=== PATIENT | male | born 1945 | race Caucasian/White ===

== ENCOUNTER 2017-03-22 18:00 | Inpatient (IN) ==
[2017-03-22] MEDS ORDERED: Ipratropium/Albuterol Neb 3 ML IH ONE (18:13)
[2017-03-22] MEDS ORDERED: methylPREDNISolone 125 MG/2 ML VIAL IVP ONE (18:13)
--- NOTE | 2017-03-22 18:25 | Emergency Department Note ---
Disposition Clinical Impression: Hypoxia Dyspnea Qualifiers: Dyspnea type: unspecified Qualified Code(s): R06.00 - Dyspnea, unspecified Disposition: Still a Patient Condition: Undetermined Forms: ED Satisfaction Letter [facility] - General Chief Complaint: ED Shortness of Breath/Dyspnea Stated Complaint: shortness of breath Time Seen by Provider: 03/22/17 18:03 Source: patient, EMS Mode of arrival: EMS Limitations: no limitations Nursing Notes Reviewed: Yes Vital Signs Reviewed: Yes - History of Present Illness 71-year-old male history of COPD 3L home oxygen supplementation as needed he reports, hypertension, congestive heart failure, diabetes, chronic atrial fibrillation on warfarin presents to the ED for shortness of breath. He presents via EMS from [facility]. States he was recently discharged from [facility] for pneumonia and hypotension. He is unsure if he is currently taking antibiotics at the moment. He is currently just in rehab. He became angry when asked if on oxygen supplementation, states before hospitalization never, but since 3L as needed. The staff at the snf states he appeared to be short of breath with increase worker breathing last night as well as today. Patient denies any of the symptoms. He denies any chest pain, fever, nausea, vomiting or abdominal pain. While I was examining him he coughed up a large amount of purulent sputum. He says this is not normal. He has breathing treatments at home twice a day. He has been using his incentive spirometer. He denies any recent travel, active cancer, history of blood clots. On initial presentation he has increase worker breathing and is not moving much air on the right lung field. He is hypoxic 78% but maintaining well on 3 L oxygen supplementation. Will get EKG, chest x-ray, basic labs, lactate, blood cultures as well as continuous breathing treatments and steroids. Will reevaluate the patient. - Related Data Allergies Allergy/AdvReac Type Severity Reaction Status Date / Time lisinopril AdvReac See Verified 03/22/17 18:18 Comments All systems ED: reviewed and negative except as stated. Constitutional: Denies: fever, chills Cardiovascular: Denies: chest pain Respiratory: Reports: cough, dyspnea, wheezes Gastrointestinal: Denies: abdominal pain, nausea, vomiting Genitourinary: Denies: urgency, dysuria Musculoskeletal: Denies: back pain, neck pain Integumentary: Denies: rash, abrasion Neurological: Denies: headache Past Medical History - Past Medical History Attestation: Yes The following information was validated with the patient. Source: patient Medical history: Reports: CHF, COPD, diabetes, hyperlipidemia, hypertension Physical Exam - General Limitations: no limitations General appearance: alert, obese - Head Head exam: atraumatic, normocephalic, normal inspection - Eye Eye exam: Present: normal appearance, PERRL, EOMI - ENT ENT exam: normal exam, normal oropharynx, mucous membranes moist, other ( teleangectasia) - Neck Neck exam: Present: normal inspection, full ROM, trachea midline - Chest Chest inspection: Present: normal inspection, symmetric chest wall rise. Absent : tenderness, rash - Respiratory Respiratory exam: Present: respiratory distress, wheezes, accessory muscle use - Expanded Respiratory Exam Location: wheezes: Left, Right, decreased breath sounds: Right - Cardiovascular Cardiovascular exam: Present: normal rhythm, irregular rhythm, normal heart sounds - Abdominal Exam Abdominal exam: Present: soft (Obese), Non-Tender, normal bowel sounds. Absent : tenderness, distention, guarding, rebound, rigidity - Extremities Exam Extremities exam: Present: normal inspection, full ROM, pedal edema (+2), other (Delay capillary refill, poor perfusion throughout his extremities, cold to the touch). Absent: tenderness, calf tenderness - Neurological Exam Neurological exam: Present: alert, oriented X3 - Psychiatric Psychiatric exam: Present: normal affect, normal mood - Skin Skin exam: Present: warm, dry, intact, cyanosis, pallor Course - Reevaluation(s) Reevaluation #1: Patient will be signout to nighttime physician Dr. Barakat and Dr. Newton for further management and care. Time: 18:53 Vital Signs Temperature 98.3 F 03/22/17 18:03 Pulse Rate 76 03/22/17 18:03 Respiratory Rate 26 03/22/17 18:03 Blood Pressure 105/86 03/22/17 18:03 O2 Sat by Pulse Oximetry 76 03/22/17 18:03 Temperature 98.3 F 03/22/17 18:03 Pulse Rate 76 03/22/17 18:50 Respiratory Rate 28 03/22/17 18:50 Blood Pressure 131/82 03/22/17 18:50 O2 Sat by Pulse Oximetry 88 03/22/17 18:50 Oxygen Delivery Oxygen Delivery Nasal Cannula Shortness of Breath/Dyspnea - Medical Records Medical records reviewed: Yes I reviewed the patient's medical records. - EKG Data EKG attestation: Yes I reviewed and interpreted this EKG. EKG results narrative: EKG performed 1805 atrial fibrillation 80 bpm, QRS 139, right bundle branch block, Q waves in the inferior leads, no ST elevations or depressions. There is no old EKG for comparison. This is an abnormal EKG without STEMI pattern Critical Care Time Critical Care Time: Yes Total Critical Care Time: 35 Attestation: Critical care time 35 minutes to manage patient's severe hypoxia. S.BChastity - S.Jam Situation: Demographics, MOA Background: Presenting Complaint, Relevant PMH, Meds, & Allergies Assessment: Vital Signs, Course and respsone to treatment, Exam Concerns, Patient/Family Expectation, Pertinant Lab Results, Outstanding Labs Recommendation: Barrier(s) to disposition, Recommendation based on pending studies, treatments, or consults S.BChastity Report Given to: Dr. Barakat and Dr. Newton SLorinBLorinAKacey Repor Time: 18:53 Attestation Statement - Attestation Attestation: Patient was seen with resident physician. I reviewed the history, physical, assessment and plan, and agree with the findings. I also personally evaluated this patient and had [id number] time with this patient. 71-year-old male presents to the emergency Department from [facility]. Staff became concerned as the patient appeared increasingly short of breath. Patient still says he feels okay and at his baseline. He is on home O2 at 3 L as needed or some confusion as to whether or not this is continuous or just on a when necessary basis. Patient denies fevers or chills. He does have swelling of the lower extremities which she says is not new. He denies chest pain or fevers. I examination vital signs patient's considerably more hypoxic than he should be. Heart and blood pressure are normal. ENT is unremarkable. Heart irregularly irregular rhythm with no appreciable murmurs, heart sounds are difficult to auscultate secondary to patient habitus. Lung sounds very poor air exchange wheezing on the right side almost difficult to hear air movement on the left side. Extremities patient has considerable edema in the lower extremities from the umbilicus down. Abdomen is large obese and nontender. Neurologically is patient's intact. ED course patient will be worked up for acute COPD exacerbation pneumonia and other causes of his hypoxia. He will be admitted to the hospital once his workup is completely have more data to definitively diagnose him. Patient was signed out to the cnc machinist 2nd shift team at 7 PM who will complete the workup and disposition for this patient. Although it is possible that he could return to the snf at his time of presentation I consider this outcome unlikely.
[2017-03-22 18:47] LABS: Basophils % 0.3 %
[2017-03-22 18:49] LABS: Eosinophils # 0.1 K/mcL (0.0-0.6); Eosinophils % 0.7 %; Hematocrit 48.1 % (37.5-50.1); Hemoglobin 13.9 g/dL (12.9-16.9); Immature Granulocytes % 1.2 % (0-4); Lymphocytes # 0.5 K/mcL (0.6-4.6); Lymphocytes % 3.6 %; Mean Corpuscular HGB Conc 28.9 g/dL (31.6-35.5); Mean Corpuscular Volume 100.2 fL (83.0-100.0); Monocytes # 0.9 K/mcL (0.0-1.3); Monocytes % 5.9 %; Platelet Count 304 K/mcL (140-400); Red Cell Distribution Width 16.7 % (11.5-14.5); Segmented Neutrophils % 88.3 %
[2017-03-22 18:53] LABS: Prothrombin Time 21.6 Seconds (9.4-12.1)
[2017-03-22 18:55] LABS: Activated Partial Thrombo Time 40.2 Seconds (26.0-36.0)
[2017-03-22 18:59] LABS: ABG HCO3 49.3 mEQ/L (21-27); ABG Oxygen Saturation 88 % (95-98); ABG PH 7.24 pH Units (7.32-7.45); ABG PO2 63 mmHg (85-104); ABG TCO2 52.8 mEq/L (20-26)
[2017-03-22 19:02] LABS: ABG PCO2 115 mmHg (35-45)
[2017-03-22 19:04] LABS: BUN/Creatinine Ratio 24 (6-26); Blood Urea Nitrogen 22 mg/dL (8-26); Calcium 9.1 mg/dL (8.6-10.8); Chloride 86 mEq/L (98-109); Glucose 167 mg/dL (70-99); Osmolality,Calculated 297 (280-300); Potassium 4.8 mEq/L (3.5-4.5); Sodium 140 mEq/L (136-145); eGFR For African Americans > 60 (> 60); eGFR For Non-African Americans > 60 (> 60)
[2017-03-22 19:08] LABS: Carbon Dioxide 48 mEq/L (19-29)
[2017-03-22 19:12] LABS: Anisocytosis 1+ (Not Present); Hypochromasia Present (Not Present)
[2017-03-22] MEDS ORDERED: Aspirin 325 MG TABLET PO ONE (19:12)
[2017-03-22] MEDS ORDERED: Furosemide 40 MG/4 ML VIAL IVP ONE ×2 (19:12→22:22)
[2017-03-22 19:13] LABS: Large Platelets Present (Not Present); Platelet Estimate Normal (Normal)
[2017-03-22 19:14] LABS: Macrocytosis Present (Not Present)
--- NOTE | 2017-03-22 19:26 | Emergency Department Note ---
Disposition Clinical Impression: Hypoxia, CHF (congestive heart failure) Dyspnea Qualifiers: Dyspnea type: unspecified Qualified Code(s): R06.00 - Dyspnea, unspecified Disposition: Admitted As Inpatient Condition: Fair Time of Disposition: 20:45 SOB HPI - General Chief Complaint: ED Shortness of Breath/Dyspnea Stated Complaint: shortness of breath Time Seen by Provider: 03/22/17 18:03 Source: patient, EMS Mode of arrival: EMS Limitations: no limitations Nursing Notes Reviewed: Yes Vital Signs Reviewed: Yes - Related Data Allergies Allergy/AdvReac Type Severity Reaction Status Date / Time lisinopril AdvReac See Verified 03/22/17 18:18 Comments Constitutional: Denies: fever, chills Cardiovascular: Denies: chest pain Respiratory: Reports: cough, dyspnea, wheezes Gastrointestinal: Denies: abdominal pain, nausea, vomiting Genitourinary: Denies: urgency, dysuria Musculoskeletal: Denies: back pain, neck pain Integumentary: Denies: rash, abrasion Neurological: Denies: headache Past Medical History - Past Medical History Medical history: Reports: CHF, COPD, diabetes, hyperlipidemia, hypertension Psychiatric history: Reports: no psych history - Social History Smoking Status: Former smoker Smokeless Tobacco Status: No Alcohol use: Reports: none Drug use: Reports: none Physical Exam - General Limitations: no limitations General appearance: alert, obese Course Course Narrative: 71-year-old male presenting with shortness of breath. History of COPD and CHF. He received in signout from the daytime team. Upon my evaluation, the patient is alert and oriented 3 but does have a distant stare. He is in moderate respiratory distress with abdominal muscle use. Is not moving air at all. This was after receiving [address] the patient on BiPAP and admitted for CHF exacerbation. Chest x-ray shows diffuse pulmonary edema. Blood pressure had decreased to 110 systolic after BiPAP. We will hold off on any nitroglycerin at this time as the patient seems to be tolerating the BiPAP well and his work of breathing is decreased. His oxygen saturations have been stable around 90%. Prior to being placed on BiPAP. He was in the low to mid 80s on a nonrebreather. - Reevaluation(s) Reevaluation #1: ABG showed a CO2 of 1:15. Patient on BiPAP now. Tolerating it well. Admitted to hospitalist service. Lasix given. Vital Signs Temperature 98.3 F 03/22/17 18:03 Pulse Rate 76 03/22/17 18:03 Respiratory Rate 26 03/22/17 18:03 Blood Pressure 105/86 03/22/17 18:03 O2 Sat by Pulse Oximetry 76 03/22/17 18:03 Temperature 98.3 F 03/22/17 18:03 Pulse Rate 76 03/22/17 20:45 Respiratory Rate 20 03/22/17 20:45 Blood Pressure 126/73 03/22/17 20:45 O2 Sat by Pulse Oximetry 96 03/22/17 20:45 Oxygen Delivery Oxygen Delivery Bipap Shortness of Breath/Dyspnea - Differential Diagnosis Likely: acute exacerbation of chronic obstructive airways disease, congestive heart failure - Medical Records Medical records reviewed: Yes I reviewed the patient's medical records. - Lab Data Lab results reviewed: Yes I reviewed the patient's lab results. Result diagrams: 03/22/17 18:35 03/22/17 18:35 Lab Results 03/22/17 03/22/17 03/22/17 Range/Units 18:35 18:35 18:35 WBC 14.7 H (4.3-11.1) K/mcL RBC 4.80 (4.19-5.50) M/mcL Hgb 13.9 D (12.9-16.9) g/dL Hct 48.1 (37.5-50.1) % MCV 100.2 H (83.0-100.0) fL MCH 29.0 (28.0-33.3) pg MCHC 28.9 L (31.6-35.5) g/dL RDW 16.7 H (11.5-14.5) % Plt Count 304 (140-400) K/mcL MPV 10.0 (9.4-12.4) fL Immature Gran % 1.2 (0-4) % Seg Neutrophils % 88.3 % Lymphocytes % 3.6 % Monocytes % 5.9 % Eosinophils % 0.7 % Basophils % 0.3 % Neutrophils # 13.0 H (1.6-8.9) K/mcL Lymphocytes # 0.5 L (0.6-4.6) K/mcL Monocytes # 0.9 (0.0-1.3) K/mcL Eosinophils # 0.1 (0.0-0.6) K/mcL Basophils # 0.0 (0.0-0.2) K/mcL Platelet Estimate Normal (Normal) Large Platelets Present A (Not Present) Hypochromasia Present A (Not Present) Anisocytosis 1+ A (Not Present) Macrocytosis Present A (Not Present) PT (9.4-12.1) Seconds INR APTT (26.0-36.0) Seconds ABG pH (7.32-7.45) pH Units ABG pCO2 (35-45) mmHg ABG pO2 (85-104) mmHg ABG HCO3 (21-27) mEQ/L ABG Total CO2 (20-26) mEq/L ABG O2 Saturation (95-98) % ABG Base Excess (-2.0 to 3.0) mEq/L Sodium 140 (136-145) mEq/L Potassium 4.8 H (3.5-4.5) mEq/L Chloride 86 L (98-109) mEq/L Carbon Dioxide 48 H* (19-29) mEq/L BUN 22 (8-26) mg/dL Creatinine 0.93 (0.72-1.25) mg/dL Est GFR ( Amer) > 60 (> 60) Est GFR (Non-Af Amer) > 60 (> 60) BUN/Creatinine Ratio 24 (6-26) Glucose 167 H (70-99) mg/dL Calculated Osmolality 297 (280-300) Lactic Acid 1.7 (0.5-2.2) mmol/L Calcium 9.1 (8.6-10.8) mg/dL Troponin I (0-0.03) ng/mL B-Natriuretic Peptide (0-100) pg/mL 03/22/17 03/22/17 03/22/17 Range/Units 18:35 18:35 18:35 WBC (4.3-11.1) K/mcL RBC (4.19-5.50) M/mcL Hgb (12.9-16.9) g/dL Hct (37.5-50.1) % MCV (83.0-100.0) fL MCH (28.0-33.3) pg MCHC (31.6-35.5) g/dL RDW (11.5-14.5) % Plt Count (140-400) K/mcL MPV (9.4-12.4) fL Immature Gran % (0-4) % Seg Neutrophils % % Lymphocytes % % Monocytes % % Eosinophils % % Basophils % % Neutrophils # (1.6-8.9) K/mcL Lymphocytes # (0.6-4.6) K/mcL Monocytes # (0.0-1.3) K/mcL Eosinophils # (0.0-0.6) K/mcL Basophils # (0.0-0.2) K/mcL Platelet Estimate (Normal) Large Platelets (Not Present) Hypochromasia (Not Present) Anisocytosis (Not Present) Macrocytosis (Not Present) PT 21.6 H (9.4-12.1) Seconds INR 2.0 APTT 40.2 H (26.0-36.0) Seconds ABG pH (7.32-7.45) pH Units ABG pCO2 (35-45) mmHg ABG pO2 (85-104) mmHg ABG HCO3 (21-27) mEQ/L ABG Total CO2 (20-26) mEq/L ABG O2 Saturation (95-98) % ABG Base Excess (-2.0 to 3.0) mEq/L Sodium (136-145) mEq/L Potassium (3.5-4.5) mEq/L Chloride (98-109) mEq/L Carbon Dioxide (19-29) mEq/L BUN (8-26) mg/dL Creatinine (0.72-1.25) mg/dL Est GFR ( Amer) (> 60) Est GFR (Non-Af Amer) (> 60) BUN/Creatinine Ratio (6-26) Glucose (70-99) mg/dL Calculated Osmolality (280-300) Lactic Acid (0.5-2.2) mmol/L Calcium (8.6-10.8) mg/dL Troponin I 0.01 (0-0.03) ng/mL B-Natriuretic Peptide 611 H (0-100) pg/mL 03/22/17 Range/Units 18:49 WBC (4.3-11.1) K/mcL RBC (4.19-5.50) M/mcL Hgb (12.9-16.9) g/dL Hct (37.5-50.1) % MCV (83.0-100.0) fL MCH (28.0-33.3) pg MCHC (31.6-35.5) g/dL RDW (11.5-14.5) % Plt Count (140-400) K/mcL MPV (9.4-12.4) fL Immature Gran % (0-4) % Seg Neutrophils % % Lymphocytes % % Monocytes % % Eosinophils % % Basophils % % Neutrophils # (1.6-8.9) K/mcL Lymphocytes # (0.6-4.6) K/mcL Monocytes # (0.0-1.3) K/mcL Eosinophils # (0.0-0.6) K/mcL Basophils # (0.0-0.2) K/mcL Platelet Estimate (Normal) Large Platelets (Not Present) Hypochromasia (Not Present) Anisocytosis (Not Present) Macrocytosis (Not Present) PT (9.4-12.1) Seconds INR APTT (26.0-36.0) Seconds ABG pH 7.24 L (7.32-7.45) pH Units ABG pCO2 115 H* (35-45) mmHg ABG pO2 63 L (85-104) mmHg ABG HCO3 49.3 H (21-27) mEQ/L ABG Total CO2 52.8 H (20-26) mEq/L ABG O2 Saturation 88 L (95-98) % ABG Base Excess 15.0 H (-2.0 to 3.0) mEq/L Sodium (136-145) mEq/L Potassium (3.5-4.5) mEq/L Chloride (98-109) mEq/L Carbon Dioxide (19-29) mEq/L BUN (8-26) mg/dL Creatinine (0.72-1.25) mg/dL Est GFR ( Amer) (> 60) Est GFR (Non-Af Amer) (> 60) BUN/Creatinine Ratio (6-26) Glucose (70-99) mg/dL Calculated Osmolality (280-300) Lactic Acid (0.5-2.2) mmol/L Calcium (8.6-10.8) mg/dL Troponin I (0-0.03) ng/mL B-Natriuretic Peptide (0-100) pg/mL - Radiology Data Radiology results reviewed: Yes I reviewed the patient's radiology results. Chest X-Ray 07/15/17 18:13 IMPRESSION: CHF and pulmonary edema with moderate left and small right pleural effusions. D/ / Efren Mcclendon MD / Efren Mcclendon MD Interpreting Provider: Efren Mcclendon MD Critical Care Time Critical Care Time: Yes Total Critical Care Time: 30 Attestation: The high probability of a clinically significant, sudden or life threatening deterioration of the [resp] system(s) required my full and direct attention, intervention and personal management. The aggregate critical care time was [30] minutes. This time is in addition to time spent performing reported procedures but includes the following: [X] Data Review and interpretation [X] Patient assessment and monitoring of vital signs [X] Documentation [X] Medication orders and management S.B.AKacey - S.B.AKacey Situation: Demographics, MOA Background: Presenting Complaint, Relevant PMH, Meds, & Allergies Assessment: Vital Signs, Course and respsone to treatment, Exam Concerns, Patient/Family Expectation, Pertinant Lab Results, Outstanding Labs Recommendation: Barrier(s) to disposition, Recommendation based on pending studies, treatments, or consults S.B.AKacey Report Given to: Dr. Shannan Sanchez Repor Time: 20:44 Attestation Statement - Attestation Attestation: I personally interviewed and examined this patient and my medical decision- making was reviewed with the ED Resident Physician, Dr. Barakat I agree with the documented findings, disposition and treatment plan as described except to the extent set forth below. She is a 71-year-old white male who presents by EMS today with respiratory distress. Patient was signed out to us by Dr. Escalante's team, they performed the initial evaluation of the patient had reviewed his EKG, placed initial orders at the time that the patient was signed out. Patient has a history of CHF, COPD, diabetes, hypertension, hyperlipidemia, who resides at an extended care facility and they felt that his breathing was much worse and he was appeared more swollen in his lower extremities today. Patient is awake alert and oriented 3 and denies any chest pain pressure or heaviness, no diaphoresis , no nausea vomiting, no abdominal pain or back pain. Patient actually feels he is at his baseline despite room air sats around 80%. We took over the patient's care patient was sitting with a nonrebreather with room air sats 89-90 %. Patient's EKG shows atrial fibrillation which is rate controlled. No acute ST or T-wave changes are appreciated. We went ahead and initiated BiPAP as the patient appears fluid overloaded and most likely an acute exacerbation of his CHF. Patient received aspirin Solu- Medrol and a breathing treatment prior to arrival, we are adding Lasix and will also add nitroglycerin assuming his pressure holds following BiPAP administration. Chest x-ray shows an acute exacerbation of CHF with bilateral pleural effusions left greater than right. Patient's BNP is mildly elevated at 611, his troponin is negative. Patient also is acidotic with an elevated CO2, COPD component involved as well. We will reevaluate the patient following BiPAP administration and admit the patient for respiratory distress.
--- NOTE | 2017-03-22 21:50 | Internal Med History&Physical ---
Date of Encounter: 03/22/17 Time of Encounter: 21:46 Assessment and Plan (1) Acute on chronic congestive heart failure Current visit: Yes Status: Acute No echocardiogram in our system, so unsure if systolic vs. diastolic; will confirm with Echocardiogram He is on high doses of diuretics at home, so will aggressively diurese with IV Lasix 40 mg BID and continue Metolazone Fluid restrict at 1.5 L and monitor I/O's Qualifiers: Congestive heart failure type: unspecified congestive heart failure type Qualified Code(s): I50.9 - Heart failure, unspecified (2) Acute on chronic respiratory failure with hypoxemia Current visit: Yes Status: Acute Likely secondary to acute on chronic CHF in setting of COPD Will continue breathing treatments, supplemental oxygen, and BiPAP as needed ABG shows CO2 of 115, but he likely is chronic CO2 retainer (3) COPD (chronic obstructive pulmonary disease) Current visit: Yes Status: Chronic Not currently in exacerbation at this time given that he denies any productive cough No indications for antibiotics now, but will start low dose steroids with 5 days of 40 mg prednisone Continue with breathing treatments and non-invasive oxygen support as above Qualifiers: Qualified Code(s): J44.9 - Chronic obstructive pulmonary disease, unspecified (4) Chronic a-fib Current visit: Yes Status: Chronic Rate controlled with Metoprolol which will resume Continue ASA, Statin, Coumadin (5) Non-insulin dependent type 2 diabetes mellitus Current visit: Yes Status: Chronic Holding home diabetic meds while on low dose SSI ACHS accuchecks Will obtain A1c in AM (6) DVT prophylaxis Current visit: Yes Status: Acute Continue home Coumadin Internal Medicine - H&P: HPI Chief complaint: SOB Admitted From: Long-term Nursing Facility Plans for Post Hospital Care: Transfer [facility] History of present illness: Mr. Monroy is a 71 year old male who presents from [facility] with shortness of breath. According to Dr. whatley, the nursing staff thought he had trouble breathing fine last night and this persisted today. Patient also complains of a cough but states this is nonproductive. He denies any fevers, chest pain, nausea, vomiting, diarrhea. Patient denies many of these symptoms and states that those shortness of breath has been present since being discharged. He was discharged on oxygen, 3 L as needed and has breathing treatments at home. Patient does have tangential speech and frequent talks about his but is otherwise appropriate. He lives at home with his and at baseline is able to get around with minimal difficulty. Patient states that he would like to try CPAP as opposed BiPAP as it dries him out. Past Med Surg Social Fam HX - Past Medical History Medical history: CHF, COPD, diabetes, hyperlipidemia, hypertension Psychiatric history: no psych history - Social History Smoking Status: Former smoker Smokeless Tobacco Status: No Alcohol use: none Drug use: none Internal Medicine - H&P: Meds Acetaminophen [Tylenol] 325 mg PO Q6HR PRN 03/22/17 [History] Albuterol Sulfate 2.5 mg IH Q4HR PRN 03/22/17 [History] Albuterol Sulfate [Proventil Hfa] 90 mcg IH Q4HR 03/22/17 [History] Allopurinol [Zyloprim] 300 mg PO DAILY 03/22/17 [History] Aspirin [Lo-Dose Aspirin EC] 81 mg PO DAILY 03/22/17 [History] Docusate Sodium [Move It Along] 100 mg PO BID 03/22/17 [History] Furosemide [Lasix] 80 mg PO BID 03/22/17 [History] Lactulose [Enulose] 10 gm PO BID 03/22/17 [History] Metoprolol Tartrate [Lopressor] 25 mg PO BID 03/22/17 [History] Psyllium Seed [Hydrocil Instant] 2.6 gm PO BID 03/22/17 [History] Simvastatin [Zocor] 20 mg PO HS 03/22/17 [History] Warfarin [Coumadin] 10 mg PO 1700 03/22/17 [History] metOLazone [Zaroxolyn] 2.5 mg PO DAILY 03/22/17 [History] Allergies lisinopril Adverse Reaction (Verified 03/22/17 18:18) See Comments "it makes me slobber" All Systems PM: A 10-system review of systems was performed and is negative for pertinent findings except as documented above in the HPI. - Constitutional Constitutional: no chills, no fever(s), no night sweats - EENT Eyes: no change in vision, no discharge, no pain, no photophobia Ears: no ear discharge, no ear pain, no tinnitus Nose, mouth and throat: no dysphagia, no nasal discharge, no neck pain, no sore throat - Cardiovascular Cardiovascular ROS IM: dyspnea, irregular heart rhythm, no chest pain, no diaphoresis, no lightheadedness, no palpitations, no syncope - Respiratory Respiratory: dyspnea, no cough, no wheezing, no excessive phlegm production - Gastrointestinal Gastrointestinal: no abdominal pain, no diarrhea, no hematemesis, no hematochezia, no melena, no nausea, no vomiting - Musculoskeletal Musculoskeletal ROS IM: no numbness, no tingling - Integumentary Integumentary IM: no rash, no unusual bruising - Neurological Neurological ROS: no confusion, no convulsions, no focal weakness, no numbness, no tingling, no tremor(s) - Hematologic/Lymphatic Hematologic/Lymphatic: no easy bruising - Constitutional Vitals: Temp Pulse Resp BP Pulse Ox 0 F L 76 25 0/0 90 03/22/17 20:56 03/22/17 20:45 03/22/17 21:08 03/22/17 20:56 03/22/17 21:08 General appearance: Present: A&O X 3, morbidly obese, pleasant, no acute distress, answers questions appropriately (tangential speaking, but eventually answers questions) - Head Head exam: Present: atraumatic, normocephalic - Eye Eye exam: Present: PERRL, conjuntiva pink, sclera anicteric - Neck Neck exam general surgery: Present: supple, trachea midline. Absent: lymphadenopathy - Respiratory Respiratory exam: Present: decreased breath sounds. Absent: accessory muscle use, rales, rhonchi, wheezes - Cardiovascular Cardiovascular exam: Present: irregular rhythm, +S1, +S2. Absent: diastolic murmur, gallop, rubs, systolic murmur - GI/Abdominal GI/Abdominal exam: Present: normal bowel sounds, soft, no peritoneal signs. Absent: distended, tenderness - Extremities Exam Extremities exam: Present: pedal edema (2+ pitting BL LE), warm, radial pulses palpable and symetrical. Absent: calf tenderness, cyanotic - Neurological Exam Neurological exam: Present: alert, oriented X3, no focal deficits. Absent: facial droop, speech deficit - Skin Skin exam: Present: dry, intact Internal Med - H&P Results - Labs CBC & Chem 7: 03/22/17 18:35 03/22/17 18:35
[2017-03-22] MEDS ORDERED: Dextrose Gel 15 GM PO PRN ×2 (22:22)
[2017-03-22] MEDS ORDERED: Acetaminophen 325 MG TABLET PO PRN (22:22)
[2017-03-22] MEDS ORDERED: *HR* Dextrose 50 % in Water (Syg) 50 ML SYRINGE IVP PRN (22:22)
[2017-03-22] MEDS ORDERED: Ondansetron 4 MG/2 ML VIAL IVP PRN (22:22)
[2017-03-22] MEDS ORDERED: D5% in Water 1,000 ML IVC PRN (22:22)
[2017-03-22] MEDS ORDERED: Naloxone 0.4 MG/ML INJ IVP PRN (22:22)
[2017-03-23 02:02] LABS: ABG Base Excess 24.6 mEq/L (-2.0 to 3.0); ABG HCO3 57.5 mEQ/L (21-27); ABG Oxygen Saturation 93 % (95-98); ABG PH 7.33 pH Units (7.32-7.45); ABG PO2 70 mmHg (85-104); ABG TCO2 > 60.0 mEq/L (20-26)
[2017-03-23 02:03] LABS: ABG PCO2 109 mmHg (35-45)
[2017-03-23] MEDS: Ipratropium/Albuterol Neb 3 ML IH SCH ×4 (03:42→21:43)
[2017-03-23] MEDS ORDERED: *HR* LORazepam 2 MG/ML VIAL IVP PRN (03:55)
[2017-03-23] MEDS: Pantoprazole 40 MG VIAL IVP SCH ×2 (05:18→05:20)
[2017-03-23 06:46] LABS: Basophils % 0.1 %; Hematocrit 40.3 % (37.5-50.1); Immature Granulocytes % 0.4 % (0-4); Lymphocytes # 0.3 K/mcL (0.6-4.6); Lymphocytes % 2.9 %; Mean Corpuscular HGB Conc 29.8 g/dL (31.6-35.5); Mean Corpuscular Hemoglobin 28.7 pg (28.0-33.3); Mean Corpuscular Volume 96.4 fL (83.0-100.0); Mean Platelet Volume 10.4 fL (9.4-12.4); Monocytes # 0.1 K/mcL (0.0-1.3); Monocytes % 1.1 %; Neutrophils # 8.5 K/mcL (1.6-8.9); Platelet Count 280 K/mcL (140-400); Red Blood Count 4.18 M/mcL (4.19-5.50); Red Cell Distribution Width 16.6 % (11.5-14.5); Segmented Neutrophils % 95.5 %
[2017-03-23 06:47] LABS: Hemoglobin A1C 6.2 %
[2017-03-23 06:52] LABS: BUN/Creatinine Ratio 32 (6-26); Blood Urea Nitrogen 27 mg/dL (8-26); Calcium 8.8 mg/dL (8.6-10.8); Chloride 87 mEq/L (98-109); Glucose 156 mg/dL (70-99); Osmolality,Calculated 300 (280-300); Potassium 4.7 mEq/L (3.5-4.5); Sodium 141 mEq/L (136-145); eGFR For African Americans > 60 (> 60); eGFR For Non-African Americans > 60 (> 60)
[2017-03-23 06:55] LABS: Carbon Dioxide 51 mEq/L (19-29)
[2017-03-23] MEDS ORDERED: Insulin LISPRO 300 UNITS/3 ML VIAL SQ SCH ×2 (07:30→21:00)
[2017-03-23 07:37] LABS: ABG Base Excess 25.2 mEq/L (-2.0 to 3.0); ABG HCO3 55.7 mEQ/L (21-27); ABG Oxygen Saturation 97 % (95-98); ABG PO2 86 mmHg (85-104); ABG TCO2 58.5 mEq/L (20-26)
[2017-03-23 07:40] LABS: ABG PCO2 90 mmHg (35-45); Blood Gas FiO2 50 %
[2017-03-23] MEDS ORDERED: Furosemide 40 MG/4 ML VIAL IVP SCH (08:00)
[2017-03-23] MEDS: Aspirin Enteric Coated 81 MG Tablet PO SCH (08:33)
[2017-03-23] MEDS: metOLazone 2.5 MG TABLET PO SCH (08:33)
[2017-03-23] MEDS ORDERED: predniSONE 20 MG TABLET PO SCH (09:00)
--- NOTE | 2017-03-23 10:39 | Internal Med Progress Note ---
Date of Encounter: 03/23/17 Time of Encounter: 09:00 - Assessment and plan (1) Hydropneumothorax Current Visit: Yes Status: Acute Assessment and plan: Patient does not use oxygen at home and is currently requiring 6 L oxygen supplementation. Examination reveals reduced breath sounds over the right lung. CT of the chest personally reviewed and reveals a moderate-sized right-sided hydropneumothorax. Pulmonary consult requested. Case discussed with pulmonology. Further management to depend on recommendations from pulmonology. We will hold his Coumadin in light of his hydropneumothorax which will likely require a chest tube placement. Will order type and screen and hold fresh frozen plasma to be transfused in case he requires chest tube placement or surgery performed. Oxygen supplementation. We will avoid BiPAP therapy. Patient is very height is due to risk of worsening respiratory failure which was requiring trach and mechanical ventilation. He also requires surgical procedures for relief of his hydropneumothorax. (2) Respiratory failure Current Visit: Yes Status: Acute Assessment and plan: Oxygen supplementation. We will avoid BiPAP therapy due to risk of worsening his hydropneumothorax. Close monitoring. Pulmonology consult. Patient may require transfer to the ICU. We will follow pulmonology conditions. Qualifiers: Chronicity: acute Respiratory failure complication: hypoxia and hypercapnia Qualified Code(s): J96.01 - Acute respiratory failure with hypoxia ; J96.02 - Acute respiratory failure with hypercapnia (3) CHF (congestive heart failure) Current Visit: Yes Status: Acute Assessment and plan: Unsure if it is systolic or diastolic. Echocardiogram has been obtained and is currently pending. Continue diuresis. Qualifiers: Congestive heart failure type: unspecified congestive heart failure type Congestive heart failure chronicity: acute Qualified Code(s): I50.9 - Heart failure, unspecified (4) COPD (chronic obstructive pulmonary disease) Current Visit: Yes Status: Chronic Assessment and plan: Continue steroid treatment. Breathing treatments. Compensated by hydropneumothorax on the right side. Qualifiers: COPD type: COPD with acute exacerbation Qualified Code(s): J44.1 - Chronic obstructive pulmonary disease with (acute) exacerbation (5) Chronic a-fib Current Visit: Yes Status: Chronic Assessment and plan: Rate controlled currently. Continue rate control medications. Will hold Coumadin due to possible need for surgical procedures. (6) Impaired glucose tolerance Current Visit: Yes Status: Chronic Assessment and plan: Hemoglobin A1c 6.2. Likely related to steroid therapy due to COPD. Discontinue glucose monitoring and sliding scale insulin. We will eventually benefit from metformin. Hold metformin for now as the patient received intravenous dye for CT angiogram. - Subjective Interval history: Patient admitted with shortness of breath. Currently, patient continues to report shortness of breath and discomfort breathing. He reports cough with productive of white colored sputum. He states that he does not use any oxygen at home. He states that he was recently at [facility] before that due to his COPD examination. He states that it [facility], he underwent thoracentesis with drainage of about 1 L of fluid. - Constitutional Vitals: Temp Pulse Resp BP Pulse Ox 97.9 F 82 24 106/71 92 03/23/17 04:00 03/23/17 07:00 03/23/17 07:15 03/23/17 07:00 03/23/17 09:30 General appearance: Present: A&O X 3, morbidly obese, pleasant, no acute distress, answers questions appropriately (tangential speaking, but eventually answers questions) Exam: Gen.: Sitting in bed. Moderate to severe distress. Chest: Reduced breath sounds bilaterally with marked reduction over the right lung base. Intermittent wheezing present. CVS: First and second heart sounds present. No murmurs, rubs or gallops. Abdomen: Soft, nontender, obese. Bowel sounds present. No hepatosplenomegaly. Skin: No decubitus ulcers appreciated. Internal Medicine: Result - Labs CBC & Chem 7: 03/23/17 06:18 03/23/17 06:18 Labs: Short CBC 03/23/17 Range/Units 06:18 WBC 8.9 (4.3-11.1) K/mcL Hgb 12.0 L D (12.9-16.9) g/dL Hct 40.3 (37.5-50.1) % Plt Count 280 (140-400) K/mcL Neutrophils # 8.5 (1.6-8.9) K/mcL BMP 03/23/17 06:18 Sodium 141 Potassium 4.7 H Chloride 87 L Carbon Dioxide 51 H* BUN 27 H Creatinine 0.85 Glucose 156 H Calcium 8.8 - ABG Interpretation ABG results: ABG ABG pH 7.40 pH Units (7.32-7.45) 03/23/17 07:15 ABG pCO2 90 mmHg (35-45) H* 03/23/17 07:15 ABG pO2 86 mmHg (85-104) 03/23/17 07:15 ABG O2 Saturation 97 % (95-98) 03/23/17 07:15 PT/INR, D-dimer PT 21.6 Seconds (9.4-12.1) H 03/22/17 18:35 - Impressions Impressions Chest CTA 03/23/17 06:59 IMPRESSION: Moderate right hydropneumothorax. Partial collapse of right upper, middle, lower lobes. Moderate left pleural effusion with left lower lobe collapse and partial atelectasis of the left upper lobe. No findings to suggest large central pulmonary embolism. Several indeterminate right-sided pulmonary nodules, for which CT follow-up after treatment and resolution of any acute symptoms is suggested. Findings were discussed with Dr. Marquez at approximately 8:52 a.m. on 03/23/2017. D/ / Sloan Mora MD / Sloan Mora MD Interpreting Provider: Sloan Mora MD - Diagnostic Studies CT scan - chest Status: image reviewed by me (Moderate sized right-sided hydropneumothorax with partial collapse of right upper, middle and lower lobes. Moderate size left pleural effusion with left lower lobe collapse and partial acute disease of the left upper lobe.) Consult Discharge Plan - Plan Referrals: Tara Colmenares [Primary Care Provider] -
[2017-03-23] MEDS: Budesonide/Formoterol 160/4.5 MDI IH SCH ×2 (11:18→21:43)
[2017-03-23 11:45] LABS: Prothrombin Time 22.1 Seconds (9.4-12.1)
--- NOTE | 2017-03-23 14:16 | Pulmonology Consult Note ---
Date of Encounter: 03/23/17 Time of Encounter: 14:11 Assessment and Plan (1) Acute on chronic respiratory failure with hypoxemia Current Visit: Yes Status: Acute Acute on chronic respiratory failure with hypoxia and hypercapnia in this individual is mainly due to obesity hypoventilation syndrome. The patient also likely has concurrent congestive heart failure which I suspect may be acute diastolic in etiology. Furthermore, the patient has evidence of right heart failure with pulmonary HTN and cor pulmonale. The bilateral pleural effusions presumably are due to congestive heart failure. Current imaging discloses a pneumothorax within the right chest and uncertain if this is the sequelae of prior thoracentesis or if it represents trapped lung. Aside from maintaining saturation values greater than equal to 88% utilizing supplemental oxygen to achieve that goal, BiPAP should be utilized routinely for this patient at night and during the daytime with any napping. A follow-up chest x-ray will be obtained and if the pneumothorax expands then the patient will require smallbore chest tube placement. Obviously, the timing of placement will be dictated by the clinical course and correcting the patient's level of coagulation (currently anticoagulated Coumadin). Irrespectively of treatment, this patient has a very poor prognosis for survival beyomnd the next year based upon his clinical status-functional status , the magnitude of this hypercapnia aned the presence of Cor Pulmonale I believe that even if he were to undergo the most aggressive care which would include a tracheostomy and invasive ventilatory support that likely would not affect this patient's outcome and perhaps would not enhance his functionality. I did review this in brief with the patient however due to his encephalopathy which is metabolically driven (hypercapnia and hypoxemia) he does not fully grasp the gravity of the current situation and would not be able to competently make any decisions at this point in time regarding undertaking such interventions as invasive ventilatory support for long-term management and tracheostomy placement. It is the the hope that with aggressive treatment for hypoventilation syndrome and treatment of heart failure his clinical status will improve. Management was reviewed with the primary service. Code(s): J96.21 - Acute and chronic respiratory failure with hypoxia SNOMED Code(s): 42945044902902470 History of Present Illness Consult date: 03/23/17 Chief complaint: Dyspnea, fatigue, excessive daytime sleepiness, abnormal chest CT scan History of present illness: Is is a 71-year-old male who is a rather poor difficult historian. He was admitted to the hospital after having received recently received care at [facility] as well as a local rehabilitation facility. He was transferred from the rehabilitation facility to the emergency room at [place] given progressive hypoxia and dyspnea. Part of the evaluation while receiving care at [place] included CT scan of the chest which was abnormal and hence pulmonary consultation requested. Patient is a former remote smoker having stopped a number of years ago. His occupation was not significant for high intensity long-duration asbestos or fibrogenic substance exposures. Patient to his recollection is never been diagnosed or treated for sleep disorder. Over number of months, the patient admitted to aggressive decline of functional respiratory status. He admits to worsening of activity tolerance, orthopnea, lower extremity edema and weight gain. The patient while receiving care at [facility] per his description underwent bilateral thoracenteses. It is his recollection that 1-1/2 L of fluid was removed (uncertain if this is from each hemithorax or in total) and furthermore recalls that he was told his heart was the etiology for the "fluid within my chest". He currently denies sputum production, wheeze, chest congestion, chest pain. This patient of note was rather sleepy throughout my evaluation frequently perseverated and sleep was somewhat confused about the details of the events of recent. Past Med Surg Social Fam HX - Past Medical History Medical history: CHF, COPD, diabetes, hyperlipidemia, hypertension Psychiatric history: no psych history - Social History Smoking Status: Former smoker Smokeless Tobacco Status: No Alcohol use: none Drug use: none Medications and Allergies Acetaminophen [Tylenol] 650 mg PO Q6HR PRN 03/22/17 [History] Albuterol Sulfate 2.5 mg IH Q4HR PRN 03/22/17 [History] Albuterol Sulfate [Proventil Hfa] 2 puff IH Q4HR 03/22/17 [History] Allopurinol [Zyloprim] 300 mg PO DAILY 03/22/17 [History] Aspirin [Lo-Dose Aspirin EC] 81 mg PO DAILY 03/22/17 [History] Docusate Sodium [Move It Along] 100 mg PO BID 03/22/17 [History] Furosemide [Lasix] 80 mg PO BID 03/22/17 [History] Lactulose [Enulose] 30 ml PO BID 03/22/17 [History] Metoprolol Tartrate [Lopressor] 25 mg PO BID 03/22/17 [History] Psyllium Seed [Hydrocil Instant] 2.6 gm PO BID 03/22/17 [History] Simvastatin [Zocor] 20 mg PO HS 03/22/17 [History] Warfarin [Coumadin] 10 mg PO 1700 03/22/17 [History] metOLazone [Zaroxolyn] 2.5 mg PO DAILY 03/22/17 [History] Allergies lisinopril Adverse Reaction (Verified 03/22/17 18:18) See Comments "it makes me slobber" All Systems: A 10-system review of systems was performed and is negative for pertinent findings except as documented above in the HPI. - Constitutional Constitutional: fatigue, lethargy, snoring, weight loss - Cardiovascular Cardiovascular: dyspnea, dyspnea on exertion, leg edema - Respiratory Respiratory: dyspnea, dyspnea on exertion Physical Examination Vital Signs: Vital Signs, Last 4 Hours Resp Pulse Ox 03/23/17 11:21 22 98 General appearance: no acute distress, lethargic, other (This individual who is morbidly obese does interact with caregivers but without stimulation the is quite sleepy and lethargic.) Neck: no lymphadenopathy Auscultation: bilateral: diminished breath sounds (Dullness to percussion both bases to mid zones.) Percussion: bilateral: dull Cardiovascular: regular rate and rhythm, other (A gallop, or lower P2 noted.) Gastrointestinal: non-tender, other (Central obesity with extensive pannus and edema of the pannus noted) Extremities: pink and warm, edema Musculoskeletal: no deformities non-focal exam, other (C other commentary regarding the patient's mental status) Ventilator Settings Ventilator Settings: Ventilator Settings, Last 8 Hours Ventilator Mode Bi-Level Results - Laboratory Findings CBC and BMP: 03/23/17 06:18 03/23/17 06:18 ABG ABG pH 7.40 pH Units (7.32-7.45) 03/23/17 07:15 ABG pCO2 90 mmHg (35-45) H* 03/23/17 07:15 ABG pO2 86 mmHg (85-104) 03/23/17 07:15 ABG O2 Saturation 97 % (95-98) 03/23/17 07:15 PT/INR, D-dimer PT 22.1 Seconds (9.4-12.1) H 03/23/17 11:24 Abnormal lab findings: Abnormal lab results RBC 4.18 M/mcL (4.19-5.50) L 03/23/17 06:18 Hgb 12.0 g/dL (12.9-16.9) L D 03/23/17 06:18 MCHC 29.8 g/dL (31.6-35.5) L 03/23/17 06:18 RDW 16.6 % (11.5-14.5) H 03/23/17 06:18 Lymphocytes # 0.3 K/mcL (0.6-4.6) L 03/23/17 06:18 Large Platelets Present (Not Present) A 03/22/17 18:35 Hypochromasia Present (Not Present) A 03/22/17 18:35 Anisocytosis 1+ (Not Present) A 03/22/17 18:35 Macrocytosis Present (Not Present) A 03/22/17 18:35 PT 22.1 Seconds (9.4-12.1) H 03/23/17 11:24 APTT 40.2 Seconds (26.0-36.0) H 03/22/17 18:35 ABG pCO2 90 mmHg (35-45) H* 03/23/17 07:15 ABG HCO3 55.7 mEQ/L (21-27) H 03/23/17 07:15 ABG Total CO2 58.5 mEq/L (20-26) H 03/23/17 07:15 ABG Base Excess 25.2 mEq/L (-2.0 to 3.0) H 03/23/17 07:15 Potassium 4.7 mEq/L (3.5-4.5) H 03/23/17 06:18 Chloride 87 mEq/L (98-109) L 03/23/17 06:18 Carbon Dioxide 51 mEq/L (19-29) H* 03/23/17 06:18 BUN 27 mg/dL (8-26) H 03/23/17 06:18 BUN/Creatinine Ratio 32 (6-26) H 03/23/17 06:18 Glucose 156 mg/dL (70-99) H 03/23/17 06:18 POC Glucose 118 (58-89) H 03/23/17 11:59 Hemoglobin A1c 6.2 % (-5.6) H 03/23/17 06:18 B-Natriuretic Peptide 611 pg/mL (0-100) H 03/22/17 18:35 - Clinical Findings Intake & Output: Intake & Output 03/22/17 03/23/17 03/23/17 23:59 07:59 15:59 Intake Total 800 / 800 360 / 360 Output Total 400 / 400 Balance 400 / 400 360 / 360 Consult Discharge Plan - Plan Referrals: Tara Colmenares [Primary Care Provider] -
[2017-03-23] MEDS: Furosemide 40 MG/4 ML VIAL IVP SCH ×2 (16:21→20:07)
[2017-03-23] MEDS: MethylPREDNISolone 40 MG/ML VIAL IVP SCH ×2 (16:21→23:30)
[2017-03-23] MEDS ORDERED: *HR* Warfarin 10 MG TABLET PO SCH ×2 (17:00→18:00)
[2017-03-23] MEDS ORDERED: Warfarin perPT PO PRN (18:00)
[2017-03-24] MEDS: Ipratropium/Albuterol Neb 3 ML IH SCH ×4 (04:00→22:14)
[2017-03-24 04:33] LABS: Basophils % 0.1 %; Hematocrit 37.6 % (37.5-50.1); Hemoglobin 11.5 g/dL (12.9-16.9); Immature Granulocytes % 0.5 % (0-4); Lymphocytes # 0.4 K/mcL (0.6-4.6); Lymphocytes % 2.4 %; Mean Corpuscular HGB Conc 30.6 g/dL (31.6-35.5); Mean Corpuscular Hemoglobin 28.5 pg (28.0-33.3); Mean Corpuscular Volume 93.1 fL (83.0-100.0); Mean Platelet Volume 10.6 fL (9.4-12.4); Monocytes # 0.3 K/mcL (0.0-1.3); Monocytes % 1.8 %; Neutrophils # 13.8 K/mcL (1.6-8.9); Platelet Count 318 K/mcL (140-400); Red Blood Count 4.04 M/mcL (4.19-5.50); Red Cell Distribution Width 16.5 % (11.5-14.5); Segmented Neutrophils % 95.2 %
[2017-03-24 04:36] LABS: INR 1.7; Prothrombin Time 18.6 Seconds (9.4-12.1)
[2017-03-24 04:45] LABS: BUN/Creatinine Ratio 44 (6-26); Calcium 8.8 mg/dL (8.6-10.8); Chloride 84 mEq/L (98-109); Glucose 157 mg/dL (70-99); Osmolality,Calculated 297 (280-300); Potassium 3.9 mEq/L (3.5-4.5); Sodium 137 mEq/L (136-145); eGFR For African Americans > 60 (> 60); eGFR For Non-African Americans > 60 (> 60)
[2017-03-24 04:55] LABS: Blood Urea Nitrogen 40 mg/dL (8-26); Carbon Dioxide 49 mEq/L (19-29)
--- NOTE | 2017-03-24 09:10 | Pulmonology Progress Note ---
Date of Encounter: 03/24/17 Time of Encounter: 08:35 Assessment and Plan (1) Acute on chronic respiratory failure with hypoxemia Current Visit: Yes Status: Acute Acute on chronic respiratory failure with hypoxia hypercapnia secondary to obesity hypoventilation syndrome and untreated sleep apnea. Patient also has evidence of pulmonary hypertension and cor pulmonale. Presumably has diastolic dysfunction as well. Overall, poor prognosis over the next 12 months. Continue medical management to include noninvasive ventilatory support diuretic therapy. Management reviewed with the patient, nursing staff and the primary hospitalist service. Yaniv Vera [phone] Code(s): J96.21 - Acute and chronic respiratory failure with hypoxia SNOMED Code(s): 07590445079309222 Subjective Principal diagnosis: Acute on chronic respiratory failure with hypoxemia hypercapnia Interval history: No new events reported overnight per discussion with nursing staff. The patient 's description, he did utilize BiPAP for approximately 4 hours. This morning, he is much more awake alert and appropriately interactive. Aside from dyspnea, fatigue, non-refreshing sleep and leg edema, the patient denies any other specific complaints at this time per comprehensive review of systems. Objective PUL Vital signs: Last Vital Signs Temp 97.7 F 03/24/17 07:55 Pulse 98 03/24/17 07:55 Resp 18 03/24/17 07:55 BP 137/79 03/24/17 07:55 Pulse Ox 96 03/24/17 07:55 General appearance: no acute distress, other Eyes: nonicteric ENT: oropharynx moist Mallampati (class): 3 Neck: no lymphadenopathy Auscultation: bilateral: diminished breath sounds Percussion: bilateral: dull Cardiovascular: irregular rhythm, other (Loud P2) Gastrointestinal: normoactive bowel sounds, non-distended, other (Central obesity, pannus) Integumentary: normal Extremities: no cyanosis normal mental status, non-focal exam mood appropriate Results - Laboratory Findings CBC and BMP: 03/24/17 03:47 03/24/17 03:47 ABG ABG pH 7.40 pH Units (7.32-7.45) 03/23/17 07:15 ABG pCO2 90 mmHg (35-45) H* 03/23/17 07:15 ABG pO2 86 mmHg (85-104) 03/23/17 07:15 ABG O2 Saturation 97 % (95-98) 03/23/17 07:15 PT/INR, D-dimer PT 18.6 Seconds (9.4-12.1) H 03/24/17 03:47 Abnormal lab findings: Abnormal lab results WBC 14.5 K/mcL (4.3-11.1) H D 03/24/17 03:47 RBC 4.04 M/mcL (4.19-5.50) L 03/24/17 03:47 Hgb 11.5 g/dL (12.9-16.9) L 03/24/17 03:47 MCHC 30.6 g/dL (31.6-35.5) L 03/24/17 03:47 RDW 16.5 % (11.5-14.5) H 03/24/17 03:47 Neutrophils # 13.8 K/mcL (1.6-8.9) H 03/24/17 03:47 Lymphocytes # 0.4 K/mcL (0.6-4.6) L 03/24/17 03:47 Large Platelets Present (Not Present) A 03/22/17 18:35 Hypochromasia Present (Not Present) A 03/22/17 18:35 Anisocytosis 1+ (Not Present) A 03/22/17 18:35 Macrocytosis Present (Not Present) A 03/22/17 18:35 PT 18.6 Seconds (9.4-12.1) H 03/24/17 03:47 APTT 40.2 Seconds (26.0-36.0) H 03/22/17 18:35 ABG pCO2 90 mmHg (35-45) H* 03/23/17 07:15 ABG HCO3 55.7 mEQ/L (21-27) H 03/23/17 07:15 ABG Total CO2 58.5 mEq/L (20-26) H 03/23/17 07:15 ABG Base Excess 25.2 mEq/L (-2.0 to 3.0) H 03/23/17 07:15 Chloride 84 mEq/L (98-109) L 03/24/17 03:47 Carbon Dioxide 49 mEq/L (19-29) H* 03/24/17 03:47 BUN 40 mg/dL (8-26) H D 03/24/17 03:47 BUN/Creatinine Ratio 44 (6-26) H 03/24/17 03:47 Glucose 157 mg/dL (70-99) H 03/24/17 03:47 POC Glucose 283 (58-89) H 03/23/17 19:29 Hemoglobin A1c 6.2 % (-5.6) H 03/23/17 06:18 B-Natriuretic Peptide 611 pg/mL (0-100) H 03/22/17 18:35 - Diagnostic Findings Chest x-ray: other (Follow-up chest x-ray performed this morning reveals bilateral pleural effusions and suggests a right basilar pneumo hydrothorax. Seemingly this finding is unchanged in comparison to the setter machine film noted with the CT scan of the chest from yesterday.) - Clinical Findings Intake & Output: Intake & Output 03/23/17 03/24/17 03/24/17 23:59 07:59 15:59 Intake Total 360 / 360 800 / 800 Output Total 800 / 800 850 / 850 Balance -440 / -440 -50 / -50 Weight 137 kg Consult Discharge Plan - Plan Referrals: Tara Colmenares [Primary Care Provider] -
[2017-03-24] MEDS: metOLazone 2.5 MG TABLET PO SCH (09:37)
[2017-03-24] MEDS: Aspirin Enteric Coated 81 MG Tablet PO SCH (09:37)
--- NOTE | 2017-03-24 09:43 | Internal Med Progress Note ---
Date of Encounter: 03/24/17 Time of Encounter: 08:45 - Assessment and plan (1) Hydropneumothorax Current Visit: Yes Status: Acute Assessment and plan: Case discussed with pulmonology. Likely lung trapping and no indication for any interventions including chest tube placement. Pulmonology states that the patient is a very poor surgical candidate. Dr. Vera states that his life expectancy may be about 1 year. I will consult and palliative care for discussion of goals of care and possible hospice referral. Continue to hold Coumadin for now. If no further interventions, will resume Coumadin. Increase the dose of Lasix to 40 mg 4 times a day. Continue BiPAP therapy when patient is asleep. Patient is very high risk is due to risk of worsening respiratory failure which may require intubation and mechanical ventilation. (2) Respiratory failure Current Visit: Yes Status: Acute Assessment and plan: Oxygen supplementation. BiPAP therapy even though the patient is sleeping and when necessary. Close monitoring. Case discussed with pulmonology. Appreciate input and recommendations. Qualifiers: Chronicity: acute Respiratory failure complication: hypoxia and hypercapnia Qualified Code(s): J96.01 - Acute respiratory failure with hypoxia ; J96.02 - Acute respiratory failure with hypercapnia (3) CHF (congestive heart failure) Current Visit: Yes Status: Acute Assessment and plan: Echocardiogram reveals preserved ejection fraction. Indeterminate diastolic function due to atrial flutter ablation. Right ventricular enlargement and systolic dysfunction. Likely related to cor pulmonale due to his severe lung problems. Continue diuresis. Increase the dose of Lasix to 40 mg 4 times a day. Strict input and output monitoring. Daily weights. Fluid restricted diet. Qualifiers: Congestive heart failure type: diastolic Congestive heart failure chronicity: acute on chronic Qualified Code(s): I50.33 - Acute on chronic diastolic (congestive) heart failure (4) COPD (chronic obstructive pulmonary disease) Current Visit: Yes Status: Chronic Assessment and plan: Continue steroid treatment. Breathing treatments. Complicated by hydropneumothorax on the right side. Qualifiers: COPD type: COPD with acute exacerbation Qualified Code(s): J44.1 - Chronic obstructive pulmonary disease with (acute) exacerbation (5) Chronic a-fib Current Visit: Yes Status: Chronic Assessment and plan: Rate controlled currently. Continue rate control medications. Will hold Coumadin due to possible need for surgical procedures. (6) Impaired glucose tolerance Current Visit: Yes Status: Chronic Assessment and plan: Eventual metformin in this patient with impaired glucose tolerance and high risk of progressing to diabetes. - Subjective Interval history: Patient utilized his BiPAP last night. He continues to report shortness of breath. Denies any chest pain. Reports feeling tired. No nausea, vomiting or diarrhea. - Constitutional Vitals: Temp Pulse Resp BP Pulse Ox 97.7 F 98 18 137/79 96 03/24/17 07:55 03/24/17 07:55 03/24/17 07:55 03/24/17 07:55 03/24/17 07:55 General appearance: Present: A&O X 3, morbidly obese, pleasant, no acute distress, answers questions appropriately (tangential speaking, but eventually answers questions) Exam: Gen.: Lying in bed. Mild to moderate distress. Chest: Reduced breath sounds bilaterally. CVS: First and second heart sounds present. No murmurs, rubs or gallops. Distant heart sounds. Abdomen: Soft, nontender, obese. Bowel sounds present. Skin: No decubitus ulcers appreciated. Internal Medicine: Result - Labs CBC & Chem 7: 03/24/17 03:47 03/24/17 03:47 Labs: Short CBC 03/24/17 Range/Units 03:47 WBC 14.5 H D (4.3-11.1) K/mcL Hgb 11.5 L (12.9-16.9) g/dL Hct 37.6 (37.5-50.1) % Plt Count 318 (140-400) K/mcL Neutrophils # 13.8 H (1.6-8.9) K/mcL BMP 03/24/17 03:47 Sodium 137 Potassium 3.9 Chloride 84 L Carbon Dioxide 49 H* BUN 40 H D Creatinine 0.90 Glucose 157 H Calcium 8.8 - ABG Interpretation ABG results: ABG ABG pH 7.40 pH Units (7.32-7.45) 03/23/17 07:15 ABG pCO2 90 mmHg (35-45) H* 03/23/17 07:15 ABG pO2 86 mmHg (85-104) 03/23/17 07:15 ABG O2 Saturation 97 % (95-98) 03/23/17 07:15 PT/INR, D-dimer PT 18.6 Seconds (9.4-12.1) H 07/17/17 03:47 - Impressions Impressions Chest X-Ray 03/24/17 06:00 IMPRESSION: Large left and small to moderate right side pleural effusions. Left greater than right lung opacities may represent atelectasis and/ or multifocal pneumonia. Enlarged cardiopericardial silhouette and mild pulmonary edema. D/ / Betzaida Cao MD / Betzaida Cao MD Interpreting Provider: Betzaida Cao MD Case discussed with pulmonology - Diagnostic Studies Chest x-ray Status: image reviewed by me (Large left pleural effusion and moderate right pleural effusion) Consult Discharge Plan - Plan Referrals: Tara Colmenares [Primary Care Provider] -
--- NOTE | 2017-03-24 10:10 | Palliative - Consult Note ---
Date of Encounter: 03/24/17 Time of Encounter: 09:30 - Assessment and Plan (1) Dyspnea Current Visit: Yes Status: Acute Assessment and plan: Slowly getting better utilizing BiPAP and diuresis from the congestive heart failure. Also has a right sided hydropneumothorax which is being observed by pulmonary and hospitalist team at this time. Plan is per pulmonary and hospitalist teams. Qualifiers: Dyspnea type: unspecified Qualified Code(s): R06.00 - Dyspnea, unspecified (2) Goals of care, counseling/discussion Current Visit: Yes Status: Acute Assessment and plan: At this time the patient is a full code. She does not had a CODE STATUS discussion in the past and is now weighing his options. He also has not done any advanced directives. States that his is the person that he would most want to have contacted, however getting ahold of her can be extremely difficult. Phone oftentimes loses charge at home and she does not answer because he is busy. Phone number for Elma his is [phone]. He states among the rest of his family they are all people he would trust, however he is not having discussions with them and at times they are difficult to get a hold of. Her son he would most like to make his medical power of ip attorney is actually caroline his granddaughter [phone]. Son-in-law Vega velazquez is the most accessible that he can answer his phone during work hours and he is at [phone] his daughter Emma velazquez [phone] so has difficult time answering her phone during work hours. The patient states he will discuss this with his family and he will make decisions with regard to his CODE STATUS. I will put in a consult to social human services assistants for advanced directives. At this time the patient has had a thorough CODE STATUS discussion and he wishes to consider his options and leave his CODE STATUS is full for now. (3) Constipation by delayed colonic transit Current Visit: Yes Status: Acute Assessment and plan: The patient is noticing that he is having fewer bowel movements, they are difficult to pass and they do make him more short of breath. I will put him on a bowel regimen to ease off any constipation so that he does not get more short of breath simply due to difficult time passing stools. (4) CHF (congestive heart failure) Current Visit: Yes Status: Acute Assessment and plan: Plan per pulmonary, and hospitalist team Qualifiers: Congestive heart failure type: diastolic Congestive heart failure chronicity: acute on chronic Qualified Code(s): I50.33 - Acute on chronic diastolic (congestive) heart failure (5) COPD (chronic obstructive pulmonary disease) Current Visit: Yes Status: Chronic Assessment and plan: Plan per pulmonary and hospitalist team Qualifiers: COPD type: COPD with acute exacerbation Qualified Code(s): J44.1 - Chronic obstructive pulmonary disease with (acute) exacerbation Palliative-CN HPI - Data of Consult Patient: new to practice Requesting Physician: Ulises Olsen MD Primary Care Provider: Tara Colmenares - Consult Narrative Palliative Care/Comfort Measures: Palliative care Reason for consult: goals of care History of present illness: Mr. Monroy is a 71 year old male Was admitted for shortness of breath. He was recently at [facility] where he was given fluid after having been hypotensive at [facility] following diuresis also had to undergo bilateral thoracentesis. Patient went back over to [facility], breathing got worse over the weekend and he was sent to [facility] for further evaluation. During the evaluation he had a CT scan which showed a right hydro-pneumothorax. Patient states that his breathing has been getting slowly worse over the last year. Been having increasing difficulty with exercise tolerance orthopnea lower extremity edema and weight gain. Patient believes that they removed 1-1/2 L of fluid total from the lungs. She was told it was because of congestive heart failure. Patient states he is breathing better now using the BiPAP. He still does not however feel like he is breathing normal for him. Patient gets short of breath with any significant movement, does have some pain in his hips however this is chronic and does not bother him unless he is trying to get up and move around. He rubs it is a deep dull ache that is worse with movement and better with rest becomes a moderate some maybe a 5-6/10 at its worst. Again is relieved by sitting still and not putting weight on his hips. Palliative care's consult of due to the fact that the patient has acute on chronic respiratory failure with hypoxemia and hypercapnia which is secondary to a combination of CHF and COPD. Her consulted for goals of care and possible hospice discussion please see the assessment and plan CC: Ulises Olsen MD sob Past Med Surg Social Fam HX - Past Medical History Medical history: CHF, COPD, diabetes, hyperlipidemia, hypertension Psychiatric history: no psych history - Social History Smoking Status: Former smoker Smokeless Tobacco Status: No Alcohol use: none Drug use: none Medications and Allergies Acetaminophen [Tylenol] 650 mg PO Q6HR PRN 03/22/17 [History] Albuterol Sulfate 2.5 mg IH Q4HR PRN 03/22/17 [History] Albuterol Sulfate [Proventil Hfa] 2 puff IH Q4HR 03/22/17 [History] Allopurinol [Zyloprim] 300 mg PO DAILY 03/22/17 [History] Aspirin [Lo-Dose Aspirin EC] 81 mg PO DAILY 03/22/17 [History] Docusate Sodium [Move It Along] 100 mg PO BID 03/22/17 [History] Furosemide [Lasix] 80 mg PO BID 03/22/17 [History] Lactulose [Enulose] 30 ml PO BID 03/22/17 [History] Metoprolol Tartrate [Lopressor] 25 mg PO BID 03/22/17 [History] Psyllium Seed [Hydrocil Instant] 2.6 gm PO BID 03/22/17 [History] Simvastatin [Zocor] 20 mg PO HS 03/22/17 [History] Warfarin [Coumadin] 10 mg PO 1700 03/22/17 [History] metOLazone [Zaroxolyn] 2.5 mg PO DAILY 03/22/17 [History] Allergies lisinopril Adverse Reaction (Verified 03/22/17 18:18) See Comments "it makes me slobber" - Constitutional Constitutional ROS PAL: fatigue, no decreased appetite, no weight loss - EENT Eyes: no discharge, no pain Ears: no ear discharge, no ear pain Ears, nose, mouth, throat: no facial pain, no hoarseness, no lip swelling - Cardiovascular Cardiovascular ROS: dyspnea on exertion, edema, irregular heart rhythm, orthopnea, palpitations, no chest pain, no chest pain at rest - Respiratory Respiratory: cough, dyspnea, dyspnea on exertion, wheezing, no pain on inspiration - Gastrointestinal Gastrointestinal: constipation, no diarrhea, no nausea, no vomiting - Genitourinary Genitourinary ROS male: no urinary frequency, no urinary hesitancy, no urinary incontinence - Musculoskeletal Musculoskeletal ROS IM: arthralgias (Tickly in the hips), no back pain, no joint swelling - Integumentary ROS Integumentary: no rash, no skin pain, no skin ulcer - Neurological Neurological ROS: no burning sensations, no confusion, no convulsions, no headache(s), no lack of coordination - Psychiatric Psychiatric general PM: no anxiety, no difficulty concentrating, no homicidal ideation, no suicidal ideation - Endocrine Additional comments: Medical record states patient does have a history of diabetes, however patient adamantly denies this. Palliative Care-Exam - Constitutional Vitals: Temp Pulse Resp BP Pulse Ox 97.7 F 98 18 137/79 96 03/24/17 07:55 03/24/17 07:55 03/24/17 07:55 03/24/17 07:55 03/24/17 07:55 General appearance: Present: no acute distress - Head Head Exam: Present: atraumatic, normal inspection - Eye Eye exam: Present: EOMI, normal appearance, PERRL - ENT ENT exam: Present: mucous membranes moist - Neck Neck exam: Present: normal inspection - Respiratory Respiratory exam: Present: decreased breath sounds - Cardiovascular Cardiovascular exam: Present: irregular rhythm - GI/Abdominal Exam GI/Abdominal exam: Present: distended, normal bowel sounds, soft. Absent: tenderness - Extremities Exam Extremities exam: Present: normal capillary refill, pedal edema. Absent: normal inspection, tenderness - Neurological Exam Neurological exam: Present: alert, CN II-XII intact, oriented X3 - Psychiatric Psychiatric exam: Present: normal affect, normal mood. Absent: agitated, anxious - Skin Skin exam: Present: dry, warm Internal Medicine - CN: Reslt - Labs CBC & Chem 7: 03/24/17 03:47 03/24/17 03:47 Labs: Short CBC 03/24/17 Range/Units 03:47 WBC 14.5 H D (4.3-11.1) K/mcL Hgb 11.5 L (12.9-16.9) g/dL Hct 37.6 (37.5-50.1) % Plt Count 318 (140-400) K/mcL Neutrophils # 13.8 H (1.6-8.9) K/mcL BMP 03/24/17 03:47 Sodium 137 Potassium 3.9 Chloride 84 L Carbon Dioxide 49 H* BUN 40 H D Creatinine 0.90 Glucose 157 H Calcium 8.8 - ABG Interpretation ABG results: ABG ABG pH 7.40 pH Units (7.32-7.45) 03/23/17 07:15 ABG pCO2 90 mmHg (35-45) H* 03/23/17 07:15 ABG pO2 86 mmHg (85-104) 03/23/17 07:15 ABG O2 Saturation 97 % (95-98) 03/23/17 07:15 PT/INR, D-dimer PT 18.6 Seconds (9.4-12.1) H 03/24/17 03:47 - Impressions Impressions Chest X-Ray 03/24/17 06:00 IMPRESSION: Large left and small to moderate right side pleural effusions. Left greater than right lung opacities may represent atelectasis and/ or multifocal pneumonia. Enlarged cardiopericardial silhouette and mild pulmonary edema. D/ / Betzaida Cao MD / Betzaida Cao MD Interpreting Provider: Betzaida Cao MD Consult Discharge Plan - Plan Referrals: Tara Colmenares [Primary Care Provider] - Palliative Quality Palliative Quality: Screen for Code Status: Yes, Screen for Goals of Care: Yes, Screen for Pain: Yes, If Pain Regimen Started, Initiate Bowel Regimen: Yes, Screen for Nausea/Vomitting: Yes
[2017-03-24] MEDS: Budesonide/Formoterol 160/4.5 MDI IH SCH ×2 (10:49→22:13)
--- NOTE | 2017-03-24 15:08 | Electrocardiograph Report ---
[place] [id number] Test Date: 2017-03-22 Pat Name: Harman Monroy Department: 102 Room: 2NE19 Gender: M [employer] Worker: [facility] : 1945 Requested By: Garrison Araya Order Number: [id number] Reading MD: Kolby Flores MD Measurements Intervals [place] Rate: 80 P: NH: 0 QRS: -57 QRSD: 139 T: 64 QT: 401 QTc: 437 Interpretive Statements ATRIAL FIBRILLATION MARKED LEFT AXIS DEVIATION RIGHT BUNDLE BRANCH BLOCK ANTEROSEPTAL MYOCARDIAL INFARCTION, OF INDETERMINATE AGE Electronically Signed On 03-24-2017 15:06:53 EDT by Kolby Flores MD
[2017-03-24] MEDS: Furosemide 40 MG/4 ML VIAL IVP SCH ×3 (15:11→21:04)
[2017-03-24] MEDS ORDERED: Warfarin perPT PO PRN (18:00)
[2017-03-24] MEDS ORDERED: *HR* Warfarin 10 MG TABLET PO SCH (18:00)
[2017-03-24] MEDS: Sennosides/Docusate Sodium TABLET PO SCH (21:00)
[2017-03-25] MEDS: Albuterol 2.5 MG/3 ML NEBULIZER IH PRN (01:40)
[2017-03-25] MEDS: Furosemide 40 MG/4 ML VIAL IVP SCH ×4 (03:50→23:57)
[2017-03-25] MEDS: Ipratropium/Albuterol Neb 3 ML IH SCH ×5 (04:13→21:28)
[2017-03-25 06:11] LABS: Basophils % 0.1 %; Eosinophils # 0.1 K/mcL (0.0-0.6); Eosinophils % 0.7 %; Hematocrit 43.4 % (37.5-50.1); Immature Granulocytes % 0.6 % (0-4); Lymphocytes # 0.7 K/mcL (0.6-4.6); Lymphocytes % 5.2 %; Mean Corpuscular HGB Conc 30.2 g/dL (31.6-35.5); Mean Corpuscular Hemoglobin 27.6 pg (28.0-33.3); Mean Corpuscular Volume 91.6 fL (83.0-100.0); Mean Platelet Volume 10.1 fL (9.4-12.4); Monocytes # 0.8 K/mcL (0.0-1.3); Monocytes % 6.2 %; Neutrophils # 11.8 K/mcL (1.6-8.9); Platelet Count 347 K/mcL (140-400); Red Blood Count 4.74 M/mcL (4.19-5.50); Red Cell Distribution Width 16.8 % (11.5-14.5); Segmented Neutrophils % 87.2 %
[2017-03-25 06:12] LABS: INR 1.4; Prothrombin Time 15.1 Seconds (9.4-12.1)
[2017-03-25 06:24] LABS: Hemoglobin 13.1 g/dL (12.9-16.9)
[2017-03-25 06:38] LABS: BUN/Creatinine Ratio 53 (6-26); Blood Urea Nitrogen 44 mg/dL (8-26); Calcium 9.3 mg/dL (8.6-10.8); Chloride 82 mEq/L (98-109); Glucose 110 mg/dL (70-99); Osmolality,Calculated 298 (280-300); Potassium 3.6 mEq/L (3.5-4.5); Sodium 138 mEq/L (136-145); eGFR For African Americans > 60 (> 60); eGFR For Non-African Americans > 60 (> 60)
[2017-03-25 06:40] LABS: Carbon Dioxide 50 mEq/L (19-29)
[2017-03-25] MEDS: metOLazone 2.5 MG TABLET PO SCH (09:52)
[2017-03-25] MEDS: Sennosides/Docusate Sodium TABLET PO SCH ×2 (09:53→21:03)
[2017-03-25] MEDS: Aspirin Enteric Coated 81 MG Tablet PO SCH (09:53)
--- NOTE | 2017-03-25 10:02 | Pulmonology Progress Note ---
Date of Encounter: 03/25/17 Time of Encounter: 09:35 Assessment and Plan (1) Acute on chronic respiratory failure with hypoxemia Current Visit: Yes Status: Acute Acute on chronic respiratory failure with hypoxia hypercapnia secondary to obesity hypoventilation syndrome and untreated sleep apnea. Patient also has evidence of pulmonary hypertension and cor pulmonale. Presumably has diastolic dysfunction as well. Overall, poor prognosis over the next 12 months. Continue medical management to include noninvasive ventilatory support diuretic therapy. Given worsening right pneumothorax, patient will require chest tube placement. Management reviewed with the patient, nursing staff and the primary hospitalist service. Yaniv Vera [phone] Code(s): J96.21 - Acute and chronic respiratory failure with hypoxia SNOMED Code(s): 40444985346955056 Subjective Principal diagnosis: Acute on chronic respiratory failure with hypoxemia hypercapnia Interval history: No new events reported overnight per discussion with nursing staff. The patient 's description, he did utilize BiPAP for approximately 4 hours. This morning, he is much more awake alert and appropriately interactive. He reportedly wore PAP most of the night. Aside from dyspnea, fatigue, non-refreshing sleep and leg edema, the patient denies any other specific complaints at this time per comprehensive review of systems. Objective PUL Vital signs: Last Vital Signs Temp 97.7 F 03/25/17 07:00 Pulse 77 03/25/17 07:00 Resp 20 03/25/17 07:00 BP 106/64 03/25/17 07:00 Pulse Ox 95 03/25/17 07:00 General appearance: no acute distress, other (Morbidly obese) Eyes: nonicteric ENT: oropharynx moist Mallampati (class): 3 Auscultation: bilateral: diminished breath sounds Cardiovascular: regular rate and rhythm Gastrointestinal: normoactive bowel sounds, non-distended Integumentary: normal Extremities: edema normal mental status, non-focal exam Results - Laboratory Findings CBC and BMP: 03/25/17 05:33 03/25/17 05:33 ABG ABG pH 7.40 pH Units (7.32-7.45) 03/23/17 07:15 ABG pCO2 90 mmHg (35-45) H* 03/23/17 07:15 ABG pO2 86 mmHg (85-104) 03/23/17 07:15 ABG O2 Saturation 97 % (95-98) 03/23/17 07:15 PT/INR, D-dimer PT 15.1 Seconds (9.4-12.1) H 03/25/17 05:33 Abnormal lab findings: Abnormal lab results WBC 13.5 K/mcL (4.3-11.1) H 03/25/17 05:33 MCH 27.6 pg (28.0-33.3) L 03/25/17 05:33 MCHC 30.2 g/dL (31.6-35.5) L 03/25/17 05:33 RDW 16.8 % (11.5-14.5) H 03/25/17 05:33 Neutrophils # 11.8 K/mcL (1.6-8.9) H 03/25/17 05:33 Large Platelets Present (Not Present) A 03/22/17 18:35 Hypochromasia Present (Not Present) A 03/22/17 18:35 Anisocytosis 1+ (Not Present) A 03/22/17 18:35 Macrocytosis Present (Not Present) A 03/22/17 18:35 PT 15.1 Seconds (9.4-12.1) H 03/25/17 05:33 APTT 40.2 Seconds (26.0-36.0) H 03/22/17 18:35 ABG pCO2 90 mmHg (35-45) H* 03/23/17 07:15 ABG HCO3 55.7 mEQ/L (21-27) H 03/23/17 07:15 ABG Total CO2 58.5 mEq/L (20-26) H 03/23/17 07:15 ABG Base Excess 25.2 mEq/L (-2.0 to 3.0) H 03/23/17 07:15 Chloride 82 mEq/L (98-109) L 03/25/17 05:33 Carbon Dioxide 50 mEq/L (19-29) H* 03/25/17 05:33 BUN 44 mg/dL (8-26) H 03/25/17 05:33 BUN/Creatinine Ratio 53 (6-26) H 03/25/17 05:33 Glucose 110 mg/dL (70-99) H 03/25/17 05:33 POC Glucose 283 (58-89) H 03/23/17 19:29 Hemoglobin A1c 6.2 % (-5.6) H 03/23/17 06:18 B-Natriuretic Peptide 611 pg/mL (0-100) H 03/22/17 18:35 - Clinical Findings Intake & Output: Intake & Output 03/24/17 03/25/17 03/25/17 23:59 07:59 15:59 Intake Total 740 / 740 260 / 260 480 / 480 Output Total 2650 / 2650 2800 / 2800 Balance -1910 / -1910 -2540 / -2540 480 / 480 Weight 136.1 kg Consult Discharge Plan - Plan Referrals: Tara Colmenares [Primary Care Provider] -
--- NOTE | 2017-03-25 10:31 | Palliative Progress Note ---
Date of Encounter: 03/25/17 Time of Encounter: 09:30 - Assessment and plan (1) Dyspnea Current Visit: Yes Status: Acute Assessment and plan: The patient states it is stable at this time, however his x-ray continues to look bad. The pneumothorax that was noted previously has increased in size and plan currently is to put a chest tube in other side looks extremely congested per the chest x-ray report. Pulmonary is following. Invasive radiology is to put in the chest tube, plan per pulmonary hospitalist team. Qualifiers: Dyspnea type: unspecified Qualified Code(s): R06.00 - Dyspnea, unspecified (2) Goals of care, counseling/discussion Current Visit: Yes Status: Acute Assessment and plan: The patient is a full code, his goals of care are to return to rehabilitation and then go home. The patient did have a full CODE STATUS discussion yesterday to considering the status. I am very fearful if he goes on a ventilator he will not be able to come off. I have discussed this at length with pulmonary and they agree. Continue to discuss this further with the patient he is also been given his papers for directives and he will get these filled out. (3) Constipation by delayed colonic transit Current Visit: Yes Status: Acute Assessment and plan: Bowels are moving, continue to watch no changes today. (4) CHF (congestive heart failure) Current Visit: Yes Status: Acute Assessment and plan: Patient feels slightly better today plan per hospitalist team and pulmonary. Qualifiers: Congestive heart failure type: diastolic Congestive heart failure chronicity: acute on chronic Qualified Code(s): I50.33 - Acute on chronic diastolic (congestive) heart failure (5) COPD (chronic obstructive pulmonary disease) Current Visit: Yes Status: Chronic Assessment and plan: Patient feels slightly better today, plan per pulmonary hospitalist team. Qualifiers: COPD type: COPD with acute exacerbation Qualified Code(s): J44.1 - Chronic obstructive pulmonary disease with (acute) exacerbation - Time Spent With Patient Total time spent is greater than 50% in coordination of care (as documented) at patient's floor/unit and/or counseling patient: - Subjective Interval history: The patient states his breathing is slightly better today. Had no questions regarding goals of care, or his CODE STATUS at this time. He states his bowels are moving and is not having too much trouble shortness of breath when they do. He states the only pain that he is having is in his hips and that is only when he moves around. He does not consider this to be a problem. - Constitutional Vitals: Abnormal lab results WBC 13.5 K/mcL (4.3-11.1) H 03/25/17 05:33 MCH 27.6 pg (28.0-33.3) L 03/25/17 05:33 MCHC 30.2 g/dL (31.6-35.5) L 03/25/17 05:33 RDW 16.8 % (11.5-14.5) H 03/25/17 05:33 Neutrophils # 11.8 K/mcL (1.6-8.9) H 03/25/17 05:33 Large Platelets Present (Not Present) A 03/22/17 18:35 Hypochromasia Present (Not Present) A 03/22/17 18:35 Anisocytosis 1+ (Not Present) A 03/22/17 18:35 Macrocytosis Present (Not Present) A 03/22/17 18:35 PT 15.1 Seconds (9.4-12.1) H 03/25/17 05:33 APTT 40.2 Seconds (26.0-36.0) H 03/22/17 18:35 ABG pCO2 90 mmHg (35-45) H* 03/23/17 07:15 ABG HCO3 55.7 mEQ/L (21-27) H 03/23/17 07:15 ABG Total CO2 58.5 mEq/L (20-26) H 03/23/17 07:15 ABG Base Excess 25.2 mEq/L (-2.0 to 3.0) H 03/23/17 07:15 Chloride 82 mEq/L (98-109) L 03/25/17 05:33 Carbon Dioxide 50 mEq/L (19-29) H* 03/25/17 05:33 BUN 44 mg/dL (8-26) H 03/25/17 05:33 BUN/Creatinine Ratio 53 (6-26) H 03/25/17 05:33 Glucose 110 mg/dL (70-99) H 03/25/17 05:33 POC Glucose 283 (58-89) H 03/23/17 19:29 Hemoglobin A1c 6.2 % (-5.6) H 03/23/17 06:18 B-Natriuretic Peptide 611 pg/mL (0-100) H 03/22/17 18:35 General appearance: Present: no acute distress - Head Head exam: Present: atraumatic, normal inspection - Eye Eye exam: Present: normal appearance - ENT ENT exam: Present: mucous membranes moist - Neck Neck exam: Present: normal inspection - Respiratory Respiratory exam: Present: decreased breath sounds - Cardiovascular Cardiovascular exam: Present: irregular rhythm - GI/Abdominal GI/Abdominal exam: Present: normal bowel sounds. Absent: tenderness - Extremities Exam Extremities exam: Present: pedal edema. Absent: normal inspection, tenderness - Neurological Exam Neurological exam: Present: alert, oriented X3 - Psychiatric Psychiatric exam: Present: normal affect, normal mood. Absent: agitated, anxious - Skin Skin exam: Present: dry, warm Palliative Quality Palliative Quality: Screen for Code Status: Yes, Screen for Goals of Care: Yes, Screen for Pain: Yes, If Pain Regimen Started, Initiate Bowel Regimen: Yes, Screen for Nausea/Vomitting: Yes - Labs CBC & Chem 7: 03/25/17 05:33 03/25/17 05:33 Labs: Laboratory Results - last 24 hr 03/23/17 03/25/17 03/25/17 11:24 05:33 05:33 WBC 13.5 H RBC 4.74 Hgb 13.1 D Hct 43.4 MCV 91.6 MCH 27.6 L MCHC 30.2 L RDW 16.8 H Plt Count 347 MPV 10.1 Immature Gran % 0.6 Seg Neutrophils % 87.2 Lymphocytes % 5.2 Monocytes % 6.2 Eosinophils % 0.7 Basophils % 0.1 Neutrophils # 11.8 H Lymphocytes # 0.7 Monocytes # 0.8 Eosinophils # 0.1 Basophils # 0.0 PT INR Sodium 138 Potassium 3.6 Chloride 82 L Carbon Dioxide 50 H* BUN 44 H Creatinine 0.83 Est GFR ( Amer) > 60 Est GFR (Non-Af Amer) > 60 BUN/Creatinine Ratio 53 H Glucose 110 H Calculated Osmolality 298 Calcium 9.3 Blood Type A NEGATIVE Antibody Screen NEGATIVE 03/25/17 05:33 WBC RBC Hgb Hct MCV MCH MCHC RDW Plt Count MPV Immature Gran % Seg Neutrophils % Lymphocytes % Monocytes % Eosinophils % Basophils % Neutrophils # Lymphocytes # Monocytes # Eosinophils # Basophils # PT 15.1 H INR 1.4 Sodium Potassium Chloride Carbon Dioxide BUN Creatinine Est GFR ( Amer) Est GFR (Non-Af Amer) BUN/Creatinine Ratio Glucose Calculated Osmolality Calcium Blood Type Antibody Screen - Impressions Impressions Chest X-Ray 03/25/17 07:51 IMPRESSION: 1. Right hydropneumothorax is again noted with interval enlargement of the pneumothorax. 2. Near complete opacification of the left hemithorax is unchanged. 3. No significant change in the opacities in the right mid to lower lung. D/ / Willy Brito MD / Willy Brito MD Interpreting Provider: Willy Brito MD - ABG Interpretation ABG results: ABG ABG pH 7.40 pH Units (7.32-7.45) 03/23/17 07:15 ABG pCO2 90 mmHg (35-45) H* 03/23/17 07:15 ABG pO2 86 mmHg (85-104) 03/23/17 07:15 ABG O2 Saturation 97 % (95-98) 03/23/17 07:15 PT/INR, D-dimer PT 15.1 Seconds (9.4-12.1) H 03/25/17 05:33 Consult Discharge Plan - Plan Referrals: Tara Colmenares [Primary Care Provider] -
--- NOTE | 2017-03-25 10:53 | Internal Med Progress Note ---
Date of Encounter: 03/25/17 Time of Encounter: 10:45 - Assessment and plan (1) Respiratory failure Current Visit: Yes Status: Acute Assessment and plan: Oxygen supplementation. BiPAP therapy even though the patient is sleeping and when necessary. Close monitoring. Case discussed with pulmonology. Appreciate input and recommendations. Given worsening CXR findings, IR consulted for right sided chest tube placement and left sided thoracentesis will sent pleural fluid for analysis (cell count, LDH, glucose, culture/gram stain, protein, albumin) will closely monitor respiratory status patient at high risk of mechanical intubation Qualifiers: Chronicity: acute Respiratory failure complication: hypoxia and hypercapnia Qualified Code(s): J96.01 - Acute respiratory failure with hypoxia ; J96.02 - Acute respiratory failure with hypercapnia (2) Hydropneumothorax Current Visit: Yes Status: Acute Assessment and plan: Given worsening right hydropneumothorax, chest tube to be placed Poor prognosis stated given current pulmonary funciton Palliative care on board to discuss goals of care patient remains full code and awaiting family input in regards to prison care goals will hold coumadin at this time Continue BiPAP therapy when patient is asleep. Patient is very high risk is due to risk of worsening respiratory failure which may require intubation and mechanical ventilation. (3) Hemothorax on left Current Visit: Yes Status: Acute Assessment and plan: as listed above (4) CHF (congestive heart failure) Current Visit: Yes Status: Acute Assessment and plan: Echocardiogram reveals preserved ejection fraction. Indeterminate diastolic function due to atrial flutter ablation. Right ventricular enlargement and systolic dysfunction. Likely related to cor pulmonale due to his severe lung problems. Continue diuresis. Lasix 40 mg 4 times a day. Strict input and output monitoring. Daily weights. Fluid restricted diet. Qualifiers: Congestive heart failure type: diastolic Congestive heart failure chronicity: acute on chronic Qualified Code(s): I50.33 - Acute on chronic diastolic (congestive) heart failure (5) Chronic a-fib Current Visit: Yes Status: Chronic Assessment and plan: Rate controlled currently. Continue rate control medications. Will hold Coumadin due to possible need for surgical procedures. (6) COPD (chronic obstructive pulmonary disease) Current Visit: Yes Status: Chronic Assessment and plan: Continue steroid treatment. Breathing treatments. Complicated by hydropneumothorax on the right side and hemothorax on left Qualifiers: COPD type: COPD with acute exacerbation Qualified Code(s): J44.1 - Chronic obstructive pulmonary disease with (acute) exacerbation (7) DVT prophylaxis Current Visit: Yes Status: Acute Assessment and plan: SCD (8) Goals of care, counseling/discussion Current Visit: Yes Status: Acute Assessment and plan: Palliative care consultation appreciated (9) Impaired glucose tolerance Current Visit: Yes Status: Chronic Assessment and plan: noted to have HbA1C:6.2 hyperglycemia secondary to steroid therapy will monitor FS ss insulin as needed - Subjective Interval history: Patient seen and examined at bedside. Sitting in chair and currently on bipap support and tolerating it well. Noted to be noncompliant with bipap support. given current CXR findings, IR was consulted and patient is to undergo right chest tube placement with left sided thoracentesis. - Constitutional Vitals: Temp Pulse Resp BP Pulse Ox 97.7 F 77 20 106/64 95 03/25/17 07:00 03/25/17 07:00 03/25/17 07:00 03/25/17 07:00 03/25/17 07:00 General appearance: Present: A&O X 3, morbidly obese, pleasant, no acute distress - Head Head exam: Present: atraumatic, normocephalic - Eye Eye exam: Present: conjuntiva pink, sclera anicteric - Respiratory Respiratory exam: Present: decreased breath sounds. Absent: wheezes - Cardiovascular Cardiovascular exam: Present: RRR, +S1, +S2. Absent: diastolic murmur, gallop, rubs, systolic murmur - GI/Abdominal GI/Abdominal exam: Present: normal bowel sounds, soft, no peritoneal signs. Absent: distended, tenderness - Extremities Exam Extremities exam: Present: pedal edema, warm, radial pulses palpable and symetrical. Absent: calf tenderness - Neurological Exam Neurological exam: Present: alert, oriented X3 - Psychiatric Psychiatric exam: Present: normal affect, normal mood Internal Medicine: Result - Labs CBC & Chem 7: 03/25/17 05:33 03/25/17 05:33 Labs: Short CBC 03/25/17 Range/Units 05:33 WBC 13.5 H (4.3-11.1) K/mcL Hgb 13.1 D (12.9-16.9) g/dL Hct 43.4 (37.5-50.1) % Plt Count 347 (140-400) K/mcL Neutrophils # 11.8 H (1.6-8.9) K/mcL BMP 03/25/17 05:33 Sodium 138 Potassium 3.6 Chloride 82 L Carbon Dioxide 50 H* BUN 44 H Creatinine 0.83 Glucose 110 H Calcium 9.3 - ABG Interpretation ABG results: ABG ABG pH 7.40 pH Units (7.32-7.45) 03/23/17 07:15 ABG pCO2 90 mmHg (35-45) H* 03/23/17 07:15 ABG pO2 86 mmHg (85-104) 03/23/17 07:15 ABG O2 Saturation 97 % (95-98) 03/23/17 07:15 PT/INR, D-dimer PT 15.1 Seconds (9.4-12.1) H 03/25/17 05:33 - Impressions Impressions Chest X-Ray 03/25/17 07:51 IMPRESSION: 1. Right hydropneumothorax is again noted with interval enlargement of the pneumothorax. 2. Near complete opacification of the left hemithorax is unchanged. 3. No significant change in the opacities in the right mid to lower lung. D/ / Willy Brito MD / Willy Brito MD Interpreting Provider: Willy Brito MD Consult Discharge Plan - Plan Referrals: Tara Colmenares [Primary Care Provider] -
[2017-03-25] MEDS ORDERED: Dextrose Gel 15 GM PO PRN ×2 (10:55)
[2017-03-25] MEDS ORDERED: *HR* Dextrose 50 % in Water (Syg) 50 ML SYRINGE IVP PRN (10:55)
[2017-03-25] MEDS ORDERED: D5% in Water 1,000 ML IVC PRN (10:55)
[2017-03-25] MEDS: Budesonide/Formoterol 160/4.5 MDI IH SCH ×2 (11:03→21:29)
[2017-03-25 11:17] LABS: ABG Base Excess 29.4 mEq/L (-2.0 to 3.0); ABG HCO3 59.3 mEQ/L (21-27); ABG Oxygen Saturation 96 % (95-98); ABG PO2 78 mmHg (85-104); ABG TCO2 > 60.0 mEq/L (20-26)
[2017-03-25 11:19] LABS: ABG PCO2 76 mmHg (35-45); Blood Gas FiO2 50 %
--- NOTE | 2017-03-25 12:33 | IR Procedure Note ---
Date of procedure: 03/25/17 Consent Obtained: Written consent Timeout: Correct patient and procedure verified, Correct site verified, Time out performed, Skin prep completed Local anesthetic: Lidocaine 1% Indications: Right chest tube placement and left thoracentesis Results/Findings: 10F right chest tube and left thoracentesis Complications: None; Tolerated procedure well (Monitor on floor)
[2017-03-25] MEDS: MethylPREDNISolone 40 MG/ML VIAL IVP SCH ×2 (16:01→18:36)
[2017-03-25 16:24] LABS: RBC,Pleural Fluid 0.142 M/mcL
[2017-03-25 17:01] LABS: Amylase,Pleural Fluid 44 Units/L (No Ref Range); Glucose,Pleural Fluid 126 mg/dL (No Ref Range); LDH,Pleural Fluid 142 Units/L (No Ref Range); Total Protein,Pleural Fluid 3.1 g/dL (No Ref Range)
[2017-03-25 17:06] LABS: Appearance of Pleural Fl Cloudy (Clear)
[2017-03-25] MEDS: *HR* Heparin 5,000 UNIT/ML VIAL SQ SCH (18:35)
[2017-03-25] MEDS: Insulin LISPRO 300 UNITS/3 ML VIAL SQ SCH ×2 (20:03→23:06)
[2017-03-26] MEDS: Ipratropium/Albuterol Neb 3 ML IH SCH ×4 (04:15→21:34)
[2017-03-26] MEDS: MethylPREDNISolone 40 MG/ML VIAL IVP SCH ×2 (05:00→09:28)
[2017-03-26] MEDS: Furosemide 40 MG/4 ML VIAL IVP SCH ×3 (05:03→18:27)
[2017-03-26] MEDS: *HR* Heparin 5,000 UNIT/ML VIAL SQ SCH ×2 (05:10→18:26)
[2017-03-26 05:23] LABS: Hemoglobin 12.6 g/dL (12.9-16.9); Immature Granulocytes % 0.6 % (0-4); Lymphocytes # 0.5 K/mcL (0.6-4.6); Lymphocytes % 3.8 %; Mean Corpuscular HGB Conc 32.3 g/dL (31.6-35.5); Mean Corpuscular Hemoglobin 28.6 pg (28.0-33.3); Mean Corpuscular Volume 88.4 fL (83.0-100.0); Mean Platelet Volume 10.7 fL (9.4-12.4); Monocytes # 0.4 K/mcL (0.0-1.3); Monocytes % 2.9 %; Neutrophils # 12.4 K/mcL (1.6-8.9); Platelet Count 297 K/mcL (140-400); Red Blood Count 4.41 M/mcL (4.19-5.50); Red Cell Distribution Width 16.5 % (11.5-14.5); Segmented Neutrophils % 92.7 %
[2017-03-26 05:27] LABS: INR 1.6; Prothrombin Time 17.6 Seconds (9.4-12.1)
[2017-03-26 05:41] LABS: BUN/Creatinine Ratio 50 (6-26); Blood Urea Nitrogen 47 mg/dL (8-26); Calcium 9.3 mg/dL (8.6-10.8); Chloride 79 mEq/L (98-109); Glucose 158 mg/dL (70-99); Osmolality,Calculated 298 (280-300); Phosphorous 4.5 mg/dL (2.3-4.7); Potassium 3.8 mEq/L (3.5-4.5); Sodium 136 mEq/L (136-145); eGFR For African Americans > 60 (> 60); eGFR For Non-African Americans > 60 (> 60)
[2017-03-26 05:50] LABS: Carbon Dioxide 49 mEq/L (19-29)
[2017-03-26] MEDS: Insulin LISPRO 300 UNITS/3 ML VIAL SQ SCH ×5 (08:12→21:40)
--- NOTE | 2017-03-26 09:12 | Pulmonology Progress Note ---
Date of Encounter: 03/26/17 Time of Encounter: 09:06 Assessment and Plan (1) Acute on chronic respiratory failure with hypoxemia Current Visit: Yes Status: Acute Acute on chronic respiratory failure with hypoxia hypercapnia secondary to obesity hypoventilation syndrome and untreated sleep apnea. Patient also has evidence of pulmonary hypertension and cor pulmonale. Presumably has diastolic dysfunction as well. Overall, poor prognosis over the next 12 months. Continue medical management to include noninvasive ventilatory support diuretic therapy. Given worsening right pneumothorax, patient underwent right chest tube placement by IR 03-25-17. Pleural fluid analysis is most consistent with a transudate of process (note borderline elevation of the protein) presumably related to heart failure. Management reviewed with the patient, nursing staff and the primary hospitalist service. Yaniv Vera [phone] Code(s): J96.21 - Acute and chronic respiratory failure with hypoxia SNOMED Code(s): [id number] Subjective Principal diagnosis: Acute on chronic respiratory failure with hypoxemia hypercapnia Interval history: No new events reported overnight per discussion with nursing staff. The patient 's description, he did utilize BiPAP for approximately 9-10 hours yesterday. This morning, he is much more awake alert and appropriately interactive. The patient underwent a small bore chest tube placement right hemithorax (seeming resolution of pneumothorax) yesterday as well as a left thoracentesis. Aside from dyspnea, fatigue, non-refreshing sleep and leg edema, the patient denies any other specific complaints at this time per comprehensive review of systems. Objective PUL Vital signs: Last Vital Signs Temp 97.7 F 03/26/17 07:12 Pulse 67 03/26/17 07:12 Resp 14 03/26/17 04:17 BP 113/71 03/26/17 07:12 Pulse Ox 100 03/26/17 07:12 General appearance: no acute distress, other (Morbidly obese) ENT: oropharynx moist Mallampati (class): 3 Neck: supple, JVD Auscultation: right: other (Smallbore chest tube, no air leak), bilateral: diminished breath sounds Cardiovascular: regular rate and rhythm Gastrointestinal: normoactive bowel sounds, non-distended, other (Central obesity) Extremities: edema Musculoskeletal: no deformities normal mental status, non-focal exam Results - Laboratory Findings CBC and BMP: 03/26/17 04:33 03/26/17 04:33 ABG ABG pH 7.50 pH Units (7.32-7.45) H 03/25/17 11:03 ABG pCO2 76 mmHg (35-45) H* 03/25/17 11:03 ABG pO2 78 mmHg (85-104) L 03/25/17 11:03 ABG O2 Saturation 96 % (95-98) 03/25/17 11:03 PT/INR, D-dimer PT 17.6 Seconds (9.4-12.1) H 03/26/17 04:33 Abnormal lab findings: Abnormal lab results WBC 13.3 K/mcL (4.3-11.1) H 03/26/17 04:33 Hgb 12.6 g/dL (12.9-16.9) L 03/26/17 04:33 RDW 16.5 % (11.5-14.5) H 03/26/17 04:33 Neutrophils # 12.4 K/mcL (1.6-8.9) H 03/26/17 04:33 Lymphocytes # 0.5 K/mcL (0.6-4.6) L 03/26/17 04:33 Large Platelets Present (Not Present) A 03/22/17 18:35 Hypochromasia Present (Not Present) A 03/22/17 18:35 Anisocytosis 1+ (Not Present) A 03/22/17 18:35 Macrocytosis Present (Not Present) A 03/22/17 18:35 PT 17.6 Seconds (9.4-12.1) H 03/26/17 04:33 APTT 40.2 Seconds (26.0-36.0) H 03/22/17 18:35 ABG pH 7.50 pH Units (7.32-7.45) H 03/25/17 11:03 ABG pCO2 76 mmHg (35-45) H* 03/25/17 11:03 ABG pO2 78 mmHg (85-104) L 03/25/17 11:03 ABG HCO3 59.3 mEQ/L (21-27) H 03/25/17 11:03 ABG Total CO2 > 60.0 mEq/L (20-26) H 03/25/17 11:03 ABG Base Excess 29.4 mEq/L (-2.0 to 3.0) H 03/25/17 11:03 Chloride 79 mEq/L (98-109) L 03/26/17 04:33 Carbon Dioxide 49 mEq/L (19-29) H* 03/26/17 04:33 BUN 47 mg/dL (8-26) H 03/26/17 04:33 BUN/Creatinine Ratio 50 (6-26) H 03/26/17 04:33 Glucose 158 mg/dL (70-99) H 03/26/17 04:33 POC Glucose 125 (58-89) H 03/24/17 16:59 Hemoglobin A1c 6.2 % (-5.6) H 03/23/17 06:18 B-Natriuretic Peptide 611 pg/mL (0-100) H 03/22/17 18:35 Pleural Appearance Cloudy (Clear) A 03/25/17 12:30 Pleural RBC 0.142 M/mcL (0.000-0.002) H 03/25/17 12:30 - Microbiology Findings Microbiology Findings: Microbiology, Last 48 Hours 03/25/17 12:30 Body Fluid Culture - Preliminary Pleural Fluid - Clinical Findings Intake & Output: Intake & Output 03/25/17 03/26/17 03/26/17 23:59 07:59 15:59 Intake Total 100 / 100 Output Total 1035 / 1035 2700 / 2700 Balance -935 / -935 -2700 / -2700 Consult Discharge Plan - Plan Referrals: Tara Colmenares [Primary Care Provider] -
[2017-03-26] MEDS: Aspirin Enteric Coated 81 MG Tablet PO SCH (09:28)
[2017-03-26] MEDS: Sennosides/Docusate Sodium TABLET PO SCH ×2 (09:29→21:21)
[2017-03-26] MEDS: metOLazone 2.5 MG TABLET PO SCH (09:29)
--- NOTE | 2017-03-26 10:18 | Internal Med Progress Note ---
Date of Encounter: 03/26/17 Time of Encounter: 10:15 - Assessment and plan (1) Respiratory failure Current Visit: Yes Status: Acute Assessment and plan: Oxygen supplementation. BiPAP therapy Close monitoring. Case discussed with pulmonology. Appreciate input and recommendations. s/p right chest tube placement and left sided thoracentesis yesterday (03/25/17). Pleural fluid analysis consistent with transudative effusion will closely monitor respiratory status patient at high risk of mechanical intubation Qualifiers: Chronicity: acute Respiratory failure complication: hypoxia and hypercapnia Qualified Code(s): J96.01 - Acute respiratory failure with hypoxia ; J96.02 - Acute respiratory failure with hypercapnia (2) Hydropneumothorax Current Visit: Yes Status: Acute Assessment and plan: right hydropneumothorax improved after right chest tube placement Poor prognosis stated given [facility] care on board to discuss goals of care patient remains full code and awaiting family input in regards to skilled nursing care goals will hold coumadin at this time Continue BiPAP therapy when patient is asleep. Noted to have hematuria, will continue to hold anticoagulation with coumadin and continue Aspirin for CVA ppx Patient is very high risk is due to risk of worsening respiratory failure which may require intubation and mechanical ventilation. (3) Hemothorax on left Current Visit: Yes Status: Acute Assessment and plan: as listed above (4) CHF (congestive heart failure) Current Visit: Yes Status: Acute Assessment and plan: Echocardiogram reveals preserved ejection fraction. Indeterminate diastolic function due to atrial flutter ablation. Right ventricular enlargement and systolic dysfunction. Likely related to cor pulmonale due to his severe lung problems. Continue diuresis. Lasix 40 mg 4 times a day. Strict input and output monitoring. Daily weights. Fluid restricted diet. Qualifiers: Congestive heart failure type: diastolic Congestive heart failure chronicity: acute on chronic Qualified Code(s): I50.33 - Acute on chronic diastolic (congestive) heart failure (5) Chronic a-fib Current Visit: Yes Status: Chronic Assessment and plan: Rate controlled currently. Continue rate control medications. hold coumadin due to hematuria asa for cva prophylaxis. (6) COPD (chronic obstructive pulmonary disease) Current Visit: Yes Status: Chronic Assessment and plan: Continue steroid treatment. Breathing treatments. Complicated by hydropneumothorax on the right side and hemothorax on left Qualifiers: COPD type: COPD with acute exacerbation Qualified Code(s): J44.1 - Chronic obstructive pulmonary disease with (acute) exacerbation (7) DVT prophylaxis Current Visit: Yes Status: Acute Assessment and plan: SCD (8) Goals of care, counseling/discussion Current Visit: Yes Status: Acute Assessment and plan: Palliative care consultation appreciated (9) Impaired glucose tolerance Current Visit: Yes Status: Chronic Assessment and plan: noted to have HbA1C:6.2 hyperglycemia secondary to steroid therapy will monitor FS ss insulin as needed - Subjective Interval history: Patient seen and examined at bedside. Sitting in chair, saturating well on 6L high flow oxygen. S/p right chest tube placement and left thoracentesis with removal of 2000cc transudative pleural fluid. Pt reports of feeling better. Detailed discussion was held with the patient in regards to his advance directives. He states if he were to require ventilator support, he would not want to be on the ventilator for long. He is currently working on his living will. - Constitutional Vitals: Temp Pulse Resp BP Pulse Ox 97.7 F 67 14 113/71 100 03/26/17 07:12 03/26/17 07:12 03/26/17 04:17 03/26/17 07:12 03/26/17 07:12 General appearance: Present: A&O X 3, morbidly obese, pleasant, no acute distress, answers questions appropriately - Head Head exam: Present: atraumatic, normocephalic - Eye Eye exam: Present: conjuntiva pink, sclera anicteric - Respiratory Respiratory exam: Present: decreased breath sounds. Absent: respiratory distress, wheezes - Cardiovascular Cardiovascular exam: Present: RRR, +S1, +S2. Absent: diastolic murmur, gallop, rubs, systolic murmur - GI/Abdominal GI/Abdominal exam: Present: normal bowel sounds, soft, no peritoneal signs. Absent: distended, tenderness - Extremities Exam Extremities exam: Present: pedal edema, warm, radial pulses palpable and symetrical. Absent: calf tenderness - Neurological Exam Neurological exam: Present: alert, oriented X3 - Psychiatric Psychiatric exam: Present: normal affect, normal mood Internal Medicine: Result - Labs CBC & Chem 7: 03/26/17 04:33 03/26/17 04:33 Labs: Short CBC 03/26/17 Range/Units 04:33 WBC 13.3 H (4.3-11.1) K/mcL Hgb 12.6 L (12.9-16.9) g/dL Hct 39.0 (37.5-50.1) % Plt Count 297 (140-400) K/mcL Neutrophils # 12.4 H (1.6-8.9) K/mcL BMP 03/26/17 04:33 Sodium 136 Potassium 3.8 Chloride 79 L Carbon Dioxide 49 H* BUN 47 H Creatinine 0.94 Glucose 158 H Calcium 9.3 - ABG Interpretation ABG results: ABG ABG pH 7.50 pH Units (7.32-7.45) H 03/25/17 11:03 ABG pCO2 76 mmHg (35-45) H* 03/25/17 11:03 ABG pO2 78 mmHg (85-104) L 03/25/17 11:03 ABG O2 Saturation 96 % (95-98) 03/25/17 11:03 PT/INR, D-dimer PT 17.6 Seconds (9.4-12.1) H 03/26/17 04:33 - Impressions Impressions Needle Aspiration CT 03/25/17 00:00 IMPRESSION: 1. CT guided right chest tube placement as discussed above. D/ / Erickson Cavazos MD / Erickson Cavazos MD Interpreting Provider: Erickson Cavazos MD Thoracentesis Ultrasound 03/25/17 00:00 IMPRESSION: 1. Successful ultrasound guided left thoracentesis. D/ / Erickson Cavazos MD / Erickson Cavazos MD Interpreting Provider: Erickson Cavazos MD Chest X-Ray 03/25/17 12:34 IMPRESSION: 1. Small right apical pneumothorax measuring 11 mm. 2. Right chest drain in place with near complete resolution of the right pleural effusion. 3. Small left pleural effusion, significantly improved. No left-sided pneumothorax identified. 4. Bibasilar atelectasis remains. D/ / 03/25/2017 13:58:04 Jeremiah Kline MD / [email or web address] Interpreting Provider: Jeremiah Kline MD Consult Discharge Plan - Plan Referrals: Tara Colmenares [Primary Care Provider] -
[2017-03-26] MEDS: Budesonide/Formoterol 160/4.5 MDI IH SCH ×2 (11:07→21:34)
--- NOTE | 2017-03-26 11:31 | Palliative Progress Note ---
Date of Encounter: 03/26/17 Time of Encounter: 07:20 - Assessment and plan (1) Dyspnea Current Visit: Yes Status: Acute Assessment and plan: The patient states it is much better at this time status post pulled off the left and a chest tube being placed on the right. Qualifiers: Dyspnea type: unspecified Qualified Code(s): R06.00 - Dyspnea, unspecified (2) Goals of care, counseling/discussion Current Visit: Yes Status: Acute Assessment and plan: The patient is a full code, however he knows he does not wish to be placed on a ventilator long-term. He would not want a trach and opaque. I have encouraged him to discuss this with his family and they know what his wishes are. I have informed him as has pulmonary that if he goes on a ventilator is very unlikely he is going to come off. Regarding goals of care he is not completely opposed to pulmonary rehabilitation , however he does not feel that [facility] did a good job for him he does not really wish to go back. There is also a long term in [facility], he made it clear that he wants no part of them. Patient would primarily like to go home. (3) Constipation by delayed colonic transit Current Visit: Yes Status: Acute Assessment and plan: Bowels are moving, continue to watch no changes today. (4) CHF (congestive heart failure) Current Visit: Yes Status: Acute Assessment and plan: Patient feels much better today. Plan per hospitalist and pulmonary. Qualifiers: Congestive heart failure type: diastolic Congestive heart failure chronicity: acute on chronic Qualified Code(s): I50.33 - Acute on chronic diastolic (congestive) heart failure (5) COPD (chronic obstructive pulmonary disease) Current Visit: Yes Status: Chronic Qualifiers: COPD type: COPD with acute exacerbation Qualified Code(s): J44.1 - Chronic obstructive pulmonary disease with (acute) exacerbation - Time Spent With Patient Total time spent is greater than 50% in coordination of care (as documented) at patient's floor/unit and/or counseling patient: - Subjective Interval history: The patient states his breathing is better today. Had fluid taken off yesterday and pneumothorax was addressed by a chest tube. The chest x-ray shows good resolution of the pneumothorax and the patient states that he is feeling much better. - Constitutional Vitals: Abnormal lab results WBC 13.3 K/mcL (4.3-11.1) H 03/26/17 04:33 Hgb 12.6 g/dL (12.9-16.9) L 03/26/17 04:33 RDW 16.5 % (11.5-14.5) H 03/26/17 04:33 Neutrophils # 12.4 K/mcL (1.6-8.9) H 03/26/17 04:33 Lymphocytes # 0.5 K/mcL (0.6-4.6) L 03/26/17 04:33 Large Platelets Present (Not Present) A 03/22/17 18:35 Hypochromasia Present (Not Present) A 03/22/17 18:35 Anisocytosis 1+ (Not Present) A 03/22/17 18:35 Macrocytosis Present (Not Present) A 03/22/17 18:35 PT 17.6 Seconds (9.4-12.1) H 03/26/17 04:33 APTT 40.2 Seconds (26.0-36.0) H 03/22/17 18:35 ABG pH 7.50 pH Units (7.32-7.45) H 03/25/17 11:03 ABG pCO2 76 mmHg (35-45) H* 03/25/17 11:03 ABG pO2 78 mmHg (85-104) L 03/25/17 11:03 ABG HCO3 59.3 mEQ/L (21-27) H 03/25/17 11:03 ABG Total CO2 > 60.0 mEq/L (20-26) H 03/25/17 11:03 ABG Base Excess 29.4 mEq/L (-2.0 to 3.0) H 03/25/17 11:03 Chloride 79 mEq/L (98-109) L 03/26/17 04:33 Carbon Dioxide 49 mEq/L (19-29) H* 03/26/17 04:33 BUN 47 mg/dL (8-26) H 03/26/17 04:33 BUN/Creatinine Ratio 50 (6-26) H 03/26/17 04:33 Glucose 158 mg/dL (70-99) H 03/26/17 04:33 POC Glucose 125 (58-89) H 03/24/17 16:59 Hemoglobin A1c 6.2 % (-5.6) H 03/23/17 06:18 B-Natriuretic Peptide 611 pg/mL (0-100) H 03/22/17 18:35 Pleural Appearance Cloudy (Clear) A 03/25/17 12:30 Pleural RBC 0.142 M/mcL (0.000-0.002) H 03/25/17 12:30 General appearance: Present: no acute distress - Head Head exam: Present: atraumatic, normal inspection - Eye Eye exam: Present: normal appearance - ENT ENT exam: Present: mucous membranes moist - Respiratory Respiratory exam: Present: decreased breath sounds (Much better air movement on both sides today versus yesterday. Chest tube is noted on the right side as well.) - Cardiovascular Cardiovascular exam: Present: RRR - GI/Abdominal GI/Abdominal exam: Present: normal bowel sounds, soft. Absent: tenderness - Extremities Exam Extremities exam: Present: pedal edema (Less than yesterday but still notable) - Neurological Exam Neurological exam: Present: alert, oriented X3 - Psychiatric Psychiatric exam: Absent: agitated, anxious - Skin Skin exam: Present: dry, warm Palliative Quality Palliative Quality: Screen for Code Status: Yes, Screen for Goals of Care: Yes, Screen for Pain: Yes, If Pain Regimen Started, Initiate Bowel Regimen: Yes, Screen for Nausea/Vomitting: Yes - Labs CBC & Chem 7: 03/26/17 04:33 03/26/17 04:33 Labs: Laboratory Results - last 24 hr 03/24/17 03/24/17 03/24/17 07:51 11:53 16:59 WBC RBC Hgb Hct MCV MCH MCHC RDW Plt Count MPV Immature Gran % Seg Neutrophils % Lymphocytes % Monocytes % Eosinophils % Basophils % Neutrophils # Lymphocytes # Monocytes # Eosinophils # Basophils # PT INR Sodium Potassium Chloride Carbon Dioxide BUN Creatinine Est GFR ( Amer) Est GFR (Non-Af Amer) BUN/Creatinine Ratio Glucose POC Glucose 163 H 109 H 125 H Calculated Osmolality Calcium Phosphorus Magnesium Pleural Fluid Volume Pleural Appearance Pleural pH Pleural RBC Pleural Tot Nuc Cell Pleural Neutrophils Pleural Band Neuts Pleural Eosinophils Pleural Basophils Pleural Lymphocytes % Pleural Monocytes % Pleural Other Cells % Pleural Total Protein Pleural Albumin Pleural LDH Pleural Glucose Pleural Amylase Pleural Cholesterol 03/25/17 03/26/17 03/26/17 12:30 04:33 04:33 WBC 13.3 H RBC 4.41 Hgb 12.6 L Hct 39.0 MCV 88.4 MCH 28.6 MCHC 32.3 RDW 16.5 H Plt Count 297 MPV 10.7 Immature Gran % 0.6 Seg Neutrophils % 92.7 Lymphocytes % 3.8 Monocytes % 2.9 Eosinophils % 0.0 Basophils % 0.0 Neutrophils # 12.4 H Lymphocytes # 0.5 L Monocytes # 0.4 Eosinophils # 0.0 Basophils # 0.0 PT 17.6 H INR 1.6 Sodium Potassium Chloride Carbon Dioxide BUN Creatinine Est GFR ( Amer) Est GFR (Non-Af Amer) BUN/Creatinine Ratio Glucose POC Glucose Calculated Osmolality Calcium Phosphorus Magnesium Pleural Fluid Volume 1500.0 Pleural Appearance Cloudy A Pleural pH 7.57 Pleural RBC 0.142 H Pleural Tot Nuc Cell 427 Pleural Neutrophils 7.0 Pleural Band Neuts Test Not Performed Pleural Eosinophils 7.0 Pleural Basophils Test Not Performed Pleural Lymphocytes % 61.0 Pleural Monocytes % 2.0 Pleural Other Cells % 23.0 Pleural Total Protein 3.1 Pleural Albumin 2.0 Pleural LDH 142 Pleural Glucose 126 Pleural Amylase 44 Pleural Cholesterol 50 03/26/17 04:33 WBC RBC Hgb Hct MCV MCH MCHC RDW Plt Count MPV Immature Gran % Seg Neutrophils % Lymphocytes % Monocytes % Eosinophils % Basophils % Neutrophils # Lymphocytes # Monocytes # Eosinophils # Basophils # PT INR Sodium 136 Potassium 3.8 Chloride 79 L Carbon Dioxide 49 H* BUN 47 H Creatinine 0.94 Est GFR ( Amer) > 60 Est GFR (Non-Af Amer) > 60 BUN/Creatinine Ratio 50 H Glucose 158 H POC Glucose Calculated Osmolality 298 Calcium 9.3 Phosphorus 4.5 Magnesium 2.0 Pleural Fluid Volume Pleural Appearance Pleural pH Pleural RBC Pleural Tot Nuc Cell Pleural Neutrophils Pleural Band Neuts Pleural Eosinophils Pleural Basophils Pleural Lymphocytes % Pleural Monocytes % Pleural Other Cells % Pleural Total Protein Pleural Albumin Pleural LDH Pleural Glucose Pleural Amylase Pleural Cholesterol - Impressions Impressions Needle Aspiration CT 03/25/17 00:00 IMPRESSION: 1. CT guided right chest tube placement as discussed above. D/ / Erickson Cavazos MD / Erickson Cavazos MD Interpreting Provider: Erickson Cavazos MD Thoracentesis Ultrasound 03/25/17 00:00 IMPRESSION: 1. Successful ultrasound guided left thoracentesis. D/ / Erickson Cavazos MD / Erickson Cavazos MD Interpreting Provider: Erickson Cavazos MD Chest X-Ray 03/25/17 12:34 IMPRESSION: 1. Small right apical pneumothorax measuring 11 mm. 2. Right chest drain in place with near complete resolution of the right pleural effusion. 3. Small left pleural effusion, significantly improved. No left-sided pneumothorax identified. 4. Bibasilar atelectasis remains. D/ / 03/25/2017 13:58:04 Jeremiah Kline MD / [email or web address] Interpreting Provider: Jeremiah Kline MD - ABG Interpretation ABG results: ABG ABG pH 7.50 pH Units (7.32-7.45) H 03/25/17 11:03 ABG pCO2 76 mmHg (35-45) H* 03/25/17 11:03 ABG pO2 78 mmHg (85-104) L 03/25/17 11:03 ABG O2 Saturation 96 % (95-98) 03/25/17 11:03 PT/INR, D-dimer PT 17.6 Seconds (9.4-12.1) H 03/26/17 04:33 Consult Discharge Plan - Plan Referrals: Tara Colmenraes [Primary Care Provider] -
[2017-03-26] MEDS ORDERED: MethylPREDNISolone 40 MG/ML VIAL IVP SCH (22:00)
[2017-03-27] MEDS: Furosemide 40 MG/4 ML VIAL IVP SCH ×5 (01:55→23:32)
[2017-03-27] MEDS: Ipratropium/Albuterol Neb 3 ML IH SCH ×4 (04:00→22:40)
[2017-03-27 04:46] LABS: Basophils % 0.1 %; Hemoglobin 11.8 g/dL (12.9-16.9); Immature Granulocytes % 0.7 % (0-4); Lymphocytes # 0.5 K/mcL (0.6-4.6); Lymphocytes % 3.4 %; Mean Corpuscular HGB Conc 31.9 g/dL (31.6-35.5); Mean Corpuscular Hemoglobin 28.1 pg (28.0-33.3); Mean Corpuscular Volume 88.1 fL (83.0-100.0); Mean Platelet Volume 10.7 fL (9.4-12.4); Monocytes # 0.3 K/mcL (0.0-1.3); Monocytes % 2.2 %; Neutrophils # 13.4 K/mcL (1.6-8.9); Platelet Count 285 K/mcL (140-400); Red Cell Distribution Width 16.3 % (11.5-14.5); Segmented Neutrophils % 93.6 %
[2017-03-27 04:51] LABS: INR 1.3; Prothrombin Time 13.6 Seconds (9.4-12.1)
[2017-03-27 04:58] LABS: BUN/Creatinine Ratio 54 (6-26); Blood Urea Nitrogen 50 mg/dL (8-26); Calcium 8.9 mg/dL (8.6-10.8); Chloride 80 mEq/L (98-109); Glucose 175 mg/dL (70-99); Magnesium 1.9 mg/dL (1.6-2.6); Osmolality,Calculated 294 (280-300); Phosphorous 3.6 mg/dL (2.3-4.7); Potassium 3.5 mEq/L (3.5-4.5); Sodium 133 mEq/L (136-145); eGFR For African Americans > 60 (> 60); eGFR For Non-African Americans > 60 (> 60)
[2017-03-27 05:01] LABS: Carbon Dioxide 46 mEq/L (19-29)
[2017-03-27] MEDS: *HR* Heparin 5,000 UNIT/ML VIAL SQ SCH ×2 (06:57→17:58)
[2017-03-27] MEDS: Insulin LISPRO 300 UNITS/3 ML VIAL SQ SCH ×4 (09:11→20:42)
[2017-03-27] MEDS: Aspirin Enteric Coated 81 MG Tablet PO SCH (09:12)
[2017-03-27] MEDS: metOLazone 2.5 MG TABLET PO SCH (09:12)
[2017-03-27] MEDS: Sennosides/Docusate Sodium TABLET PO SCH ×2 (09:12→20:41)
--- NOTE | 2017-03-27 09:24 | Pulmonology Progress Note ---
Date of Encounter: 03/27/17 Time of Encounter: 08:35 Assessment and Plan (1) Acute on chronic respiratory failure with hypoxemia Current Visit: Yes Status: Acute Acute on chronic respiratory failure with hypoxia hypercapnia secondary to obesity hypoventilation syndrome and untreated sleep apnea. Patient also has evidence of pulmonary hypertension and cor pulmonale. Overall, poor prognosis over the next 12 months. Continue medical management to include noninvasive ventilatory support diuretic therapy. Given worsening right pneumothorax, patient underwent right chest tube placement by IR 03-25-17. No resolution of pneumothorax, minimal drainage from the right chest tube and thus morning likely it will be removed within the next 24 hours. I have discontinued IV steroids placed the patient on by mouth and would anticipate a rapid taper off since I do not believe the patient has significant COPD as eytiology of current respiratory compromise (continue BD Rx, former smoker). The patient is to continue BiPAP at night and during the daytime with any naps. I specifically put in a communication order to this effect since apparently the medical staff has not been providing BiPAP during this patient's daytime naps. [facility] [place] [phone] Code(s): J96.21 - Acute and chronic respiratory failure with hypoxia SNOMED Code(s): [id number] Subjective Principal diagnosis: Acute on chronic respiratory failure with hypoxemia hypercapnia Interval history: No new events reported overnight per discussion with nursing staff. The patient 's description, he did utilize BiPAP for most of the night.. This morning, he awake alert and appropriately interactive. He admits to a significant reduction of breathlessness but continues to note significant lower extremity edema. Aside from dyspnea, fatigue, non-refreshing sleep and leg edema, the patient denies any other specific complaints at this time per comprehensive review of systems. Objective PUL Vital signs: Last Vital Signs Temp 97.8 F 03/27/17 08:00 Pulse 72 03/27/17 08:00 Resp 16 03/27/17 08:00 BP 88/66 03/27/17 08:00 Pulse Ox 93 03/27/17 08:00 General appearance: no acute distress, other (Morbidly obese) Eyes: nonicteric Mallampati (class): 3 Auscultation: right: other (Smallbore chest tube, no air leak minimal output over the past 24 hours), bilateral: diminished breath sounds Cardiovascular: regular rate and rhythm Gastrointestinal: normoactive bowel sounds, non-distended, other (Central obesity pannus) Extremities: no cyanosis, edema (Lower extremity edema with stasis changes unchanged) Musculoskeletal: no deformities normal mental status, non-focal exam Results - Laboratory Findings CBC and BMP: 03/27/17 04:00 03/27/17 04:00 ABG ABG pH 7.50 pH Units (7.32-7.45) H 03/25/17 11:03 ABG pCO2 76 mmHg (35-45) H* 03/25/17 11:03 ABG pO2 78 mmHg (85-104) L 03/25/17 11:03 ABG O2 Saturation 96 % (95-98) 03/25/17 11:03 PT/INR, D-dimer PT 13.6 Seconds (9.4-12.1) H 03/27/17 04:00 Abnormal lab findings: Abnormal lab results WBC 14.3 K/mcL (4.3-11.1) H 03/27/17 04:00 Hgb 11.8 g/dL (12.9-16.9) L 03/27/17 04:00 Hct 37.0 % (37.5-50.1) L 03/27/17 04:00 RDW 16.3 % (11.5-14.5) H 03/27/17 04:00 Neutrophils # 13.4 K/mcL (1.6-8.9) H 03/27/17 04:00 Lymphocytes # 0.5 K/mcL (0.6-4.6) L 03/27/17 04:00 Large Platelets Present (Not Present) A 03/22/17 18:35 Hypochromasia Present (Not Present) A 03/22/17 18:35 Anisocytosis 1+ (Not Present) A 03/22/17 18:35 Macrocytosis Present (Not Present) A 03/22/17 18:35 PT 13.6 Seconds (9.4-12.1) H 03/27/17 04:00 APTT 40.2 Seconds (26.0-36.0) H 03/22/17 18:35 ABG pH 7.50 pH Units (7.32-7.45) H 03/25/17 11:03 ABG pCO2 76 mmHg (35-45) H* 03/25/17 11:03 ABG pO2 78 mmHg (85-104) L 03/25/17 11:03 ABG HCO3 59.3 mEQ/L (21-27) H 03/25/17 11:03 ABG Total CO2 > 60.0 mEq/L (20-26) H 03/25/17 11:03 ABG Base Excess 29.4 mEq/L (-2.0 to 3.0) H 03/25/17 11:03 Sodium 133 mEq/L (136-145) L 03/27/17 04:00 Chloride 80 mEq/L (98-109) L 03/27/17 04:00 Carbon Dioxide 46 mEq/L (19-29) H* 03/27/17 04:00 BUN 50 mg/dL (8-26) H 03/27/17 04:00 BUN/Creatinine Ratio 54 (6-26) H 03/27/17 04:00 Glucose 175 mg/dL (70-99) H 03/27/17 04:00 POC Glucose 221 (58-89) H 03/26/17 19:25 Hemoglobin A1c 6.2 % (-5.6) H 03/23/17 06:18 B-Natriuretic Peptide 611 pg/mL (0-100) H 03/22/17 18:35 Pleural Appearance Cloudy (Clear) A 03/25/17 12:30 Pleural RBC 0.142 M/mcL (0.000-0.002) H 03/25/17 12:30 - Microbiology Findings Microbiology Findings: Microbiology, Last 48 Hours 03/25/17 12:30 Body Fluid Culture - Preliminary Pleural Fluid - Clinical Findings Intake & Output: Intake & Output 03/26/17 03/27/17 03/27/17 23:59 07:59 15:59 Intake Total 240 / 240 0 / 0 Output Total 2450 / 2450 900 / 900 600 / 600 Balance -2210 / -2210 -900 / -900 -600 / -600 Weight 127.5 kg Consult Discharge Plan - Plan Referrals: Tara Colmenares [Primary Care Provider] -
--- NOTE | 2017-03-27 09:40 | Palliative Progress Note ---
Date of Encounter: 03/27/17 Time of Encounter: 07:15 - Assessment and plan (1) Dyspnea Current Visit: Yes Status: Acute Assessment and plan: The patient states it is much better at this time and as per pulmonary and hospitalist team. The patient is to use BiPAP during naps Qualifiers: Dyspnea type: unspecified Qualified Code(s): R06.00 - Dyspnea, unspecified (2) Goals of care, counseling/discussion Current Visit: Yes Status: Acute Assessment and plan: The patient is a full code, however he knows he does not wish to be placed on a ventilator long-term. He would not want a trach and opaque. I have encouraged him to discuss this with his family and they know what his wishes are. I have informed him as has pulmonary that if he goes on a ventilator is very unlikely he is going to come off. Regarding goals of care he is not completely opposed to pulmonary rehabilitation , however he does not feel that [facility] did a good job for him he does not really wish to go back. There is also a half-way in [facility], he made it clear that he wants no part of them. Patient would primarily like to go home. This morning there is no significant change to the above, however the patient would really like to go home and does not really want to do rehabilitation at a half-way. I do believe however if this is recommended by the hospitalist and pulmonary teams he will reluctantly agree to it. (3) Constipation by delayed colonic transit Current Visit: Yes Status: Acute Assessment and plan: Bowels are moving, continue to watch no changes today. (4) CHF (congestive heart failure) Current Visit: Yes Status: Acute Assessment and plan: Patient feels much better today. Plan per hospitalist and pulmonary. Qualifiers: Congestive heart failure type: diastolic Congestive heart failure chronicity: acute on chronic Qualified Code(s): I50.33 - Acute on chronic diastolic (congestive) heart failure (5) COPD (chronic obstructive pulmonary disease) Current Visit: Yes Status: Chronic Assessment and plan: Patient feels slightly better today, plan per pulmonary hospitalist team. Qualifiers: COPD type: COPD with acute exacerbation Qualified Code(s): J44.1 - Chronic obstructive pulmonary disease with (acute) exacerbation - Time Spent With Patient Total time spent is greater than 50% in coordination of care (as documented) at patient's floor/unit and/or counseling patient: - Subjective Interval history: The patient states his breathing is better today. He slept poorly last night due to having a qualification study for which she did qualify for BiPAP. She is hoping to get the chest tube out sometime today, he would like to go home, not really wish to go out and get any more pretherapy at a half-way. - Constitutional Vitals: Abnormal lab results WBC 14.3 K/mcL (4.3-11.1) H 03/27/17 04:00 Hgb 11.8 g/dL (12.9-16.9) L 03/27/17 04:00 Hct 37.0 % (37.5-50.1) L 03/27/17 04:00 RDW 16.3 % (11.5-14.5) H 03/27/17 04:00 Neutrophils # 13.4 K/mcL (1.6-8.9) H 03/27/17 04:00 Lymphocytes # 0.5 K/mcL (0.6-4.6) L 03/27/17 04:00 Large Platelets Present (Not Present) A 03/22/17 18:35 Hypochromasia Present (Not Present) A 03/22/17 18:35 Anisocytosis 1+ (Not Present) A 03/22/17 18:35 Macrocytosis Present (Not Present) A 03/22/17 18:35 PT 13.6 Seconds (9.4-12.1) H 03/27/17 04:00 APTT 40.2 Seconds (26.0-36.0) H 03/22/17 18:35 ABG pH 7.50 pH Units (7.32-7.45) H 03/25/17 11:03 ABG pCO2 76 mmHg (35-45) H* 03/25/17 11:03 ABG pO2 78 mmHg (85-104) L 03/25/17 11:03 ABG HCO3 59.3 mEQ/L (21-27) H 03/25/17 11:03 ABG Total CO2 > 60.0 mEq/L (20-26) H 03/25/17 11:03 ABG Base Excess 29.4 mEq/L (-2.0 to 3.0) H 03/25/17 11:03 Sodium 133 mEq/L (136-145) L 03/27/17 04:00 Chloride 80 mEq/L (98-109) L 03/27/17 04:00 Carbon Dioxide 46 mEq/L (19-29) H* 03/27/17 04:00 BUN 50 mg/dL (8-26) H 03/27/17 04:00 BUN/Creatinine Ratio 54 (6-26) H 03/27/17 04:00 Glucose 175 mg/dL (70-99) H 03/27/17 04:00 POC Glucose 221 (58-89) H 03/26/17 19:25 Hemoglobin A1c 6.2 % (-5.6) H 03/23/17 06:18 B-Natriuretic Peptide 611 pg/mL (0-100) H 03/22/17 18:35 Pleural Appearance Cloudy (Clear) A 03/25/17 12:30 Pleural RBC 0.142 M/mcL (0.000-0.002) H 03/25/17 12:30 General appearance: Present: no acute distress - Head Head exam: Present: atraumatic, normal inspection - Eye Eye exam: Present: normal appearance - ENT ENT exam: Present: mucous membranes moist - Respiratory Respiratory exam: Present: decreased breath sounds (Moving air much better than he was on admission. Is a chest tube noted on the right. Enema output over the last 24 hours and does not appear to be an air leak.) - Cardiovascular Cardiovascular exam: Present: RRR - GI/Abdominal GI/Abdominal exam: Present: normal bowel sounds, soft. Absent: tenderness - Extremities Exam Extremities exam: Present: pedal edema. Absent: normal inspection, tenderness - Neurological Exam Neurological exam: Present: alert, oriented X3 - Psychiatric Psychiatric exam: Absent: agitated, anxious - Skin Skin exam: Present: dry, warm Palliative Quality Palliative Quality: Screen for Code Status: Yes, Screen for Goals of Care: Yes, Screen for Pain: Yes, If Pain Regimen Started, Initiate Bowel Regimen: Yes, Screen for Nausea/Vomitting: Yes - Labs CBC & Chem 7: 03/27/17 04:00 03/27/17 04:00 Labs: Laboratory Results - last 24 hr 03/25/17 03/26/17 03/26/17 22:39 07:19 11:43 WBC RBC Hgb Hct MCV MCH MCHC RDW Plt Count MPV Immature Gran % Seg Neutrophils % Lymphocytes % Monocytes % Eosinophils % Basophils % Neutrophils # Lymphocytes # Monocytes # Eosinophils # Basophils # PT INR Sodium Potassium Chloride Carbon Dioxide BUN Creatinine Est GFR ( Amer) Est GFR (Non-Af Amer) BUN/Creatinine Ratio Glucose POC Glucose 138 H 141 H 194 H Calculated Osmolality Calcium Phosphorus Magnesium 03/26/17 03/26/17 03/27/17 16:21 19:25 04:00 WBC RBC Hgb Hct MCV MCH MCHC RDW Plt Count MPV Immature Gran % Seg Neutrophils % Lymphocytes % Monocytes % Eosinophils % Basophils % Neutrophils # Lymphocytes # Monocytes # Eosinophils # Basophils # PT 13.6 H INR 1.3 Sodium Potassium Chloride Carbon Dioxide BUN Creatinine Est GFR ( Amer) Est GFR (Non-Af Amer) BUN/Creatinine Ratio Glucose POC Glucose 197 H 221 H Calculated Osmolality Calcium Phosphorus Magnesium 03/27/17 03/27/17 04:00 04:00 WBC 14.3 H RBC 4.20 Hgb 11.8 L Hct 37.0 L MCV 88.1 MCH 28.1 MCHC 31.9 RDW 16.3 H Plt Count 285 MPV 10.7 Immature Gran % 0.7 Seg Neutrophils % 93.6 Lymphocytes % 3.4 Monocytes % 2.2 Eosinophils % 0.0 Basophils % 0.1 Neutrophils # 13.4 H Lymphocytes # 0.5 L Monocytes # 0.3 Eosinophils # 0.0 Basophils # 0.0 PT INR Sodium 133 L Potassium 3.5 Chloride 80 L Carbon Dioxide 46 H* BUN 50 H Creatinine 0.93 Est GFR ( Amer) > 60 Est GFR (Non-Af Amer) > 60 BUN/Creatinine Ratio 54 H Glucose 175 H POC Glucose Calculated Osmolality 294 Calcium 8.9 Phosphorus 3.6 Magnesium 1.9 - Impressions Impressions Chest X-Ray 03/27/17 07:30 IMPRESSION: Interval placement of right-sided chest tube with decrease in right basilar opacity and no significant right pneumothorax. Interval decrease in left pleural effusion. New small apical left pneumothorax. D/ / Debi Dickson MD / Debi Dickson MD Interpreting Provider: Debi Dickson MD - ABG Interpretation ABG results: ABG ABG pH 7.50 pH Units (7.32-7.45) H 03/25/17 11:03 ABG pCO2 76 mmHg (35-45) H* 03/25/17 11:03 ABG pO2 78 mmHg (85-104) L 03/25/17 11:03 ABG O2 Saturation 96 % (95-98) 03/25/17 11:03 PT/INR, D-dimer PT 13.6 Seconds (9.4-12.1) H 03/27/17 04:00 Consult Discharge Plan - Plan Referrals: Tara Colmenares [Primary Care Provider] -
--- NOTE | 2017-03-27 10:23 | Internal Med Progress Note ---
Date of Encounter: 03/27/17 Time of Encounter: 10:15 - Assessment and plan (1) Respiratory failure Current Visit: Yes Status: Acute Assessment and plan: Oxygen supplementation. BiPAP therapy trhoughout the day during naps and at bedtime. Close monitoring. Case discussed with pulmonology. Appreciate input and recommendations. s/p right chest tube placement and left sided thoracentesis yesterday (03/25/17). Pleural fluid analysis consistent with transudative effusion will closely monitor respiratory status patient at high risk of mechanical intubation CXR reviewed Qualifiers: Chronicity: acute Respiratory failure complication: hypoxia and hypercapnia Qualified Code(s): J96.01 - Acute respiratory failure with hypoxia ; J96.02 - Acute respiratory failure with hypercapnia (2) Hydropneumothorax Current Visit: Yes Status: Acute Assessment and plan: right hydropneumothorax improved after right chest tube placement Poor prognosis stated given current pulmonary funciton Palliative care on board to discuss goals of care patient remains full code and awaiting family input in regards to [employer] care goals will hold coumadin at this time Continue BiPAP therapy when patient is asleep. Noted to have hematuria, will continue to hold anticoagulation with coumadin and continue Aspirin for CVA ppx Patient is very high risk is due to risk of worsening respiratory failure which may require intubation and mechanical ventilation. (3) Hemothorax on left Current Visit: Yes Status: Acute Assessment and plan: as listed above (4) CHF (congestive heart failure) Current Visit: Yes Status: Acute Assessment and plan: Echocardiogram reveals preserved ejection fraction. Indeterminate diastolic function due to atrial flutter ablation. Right ventricular enlargement and systolic dysfunction. Likely related to cor pulmonale due to his severe lung problems. Continue diuresis. Lasix 40 mg 4 times a day NOted to be hypotensive this morning but asymptomatic, will closely monitor, held morning Lasix dose due to BP readings. Strict input and output monitoring. Daily weights. Fluid restricted diet. Qualifiers: Congestive heart failure type: diastolic Congestive heart failure chronicity: acute on chronic Qualified Code(s): I50.33 - Acute on chronic diastolic (congestive) heart failure (5) Chronic a-fib Current Visit: Yes Status: Chronic Assessment and plan: Rate controlled currently. Continue rate control medications. hold coumadin due to hematuria asa for cva prophylaxis. (6) COPD (chronic obstructive pulmonary disease) Current Visit: Yes Status: Chronic Assessment and plan: Continue steroid treatment. Breathing treatments. Complicated by hydropneumothorax on the right side and hemothorax on left Qualifiers: COPD type: COPD with acute exacerbation Qualified Code(s): J44.1 - Chronic obstructive pulmonary disease with (acute) exacerbation (7) DVT prophylaxis Current Visit: Yes Status: Acute Assessment and plan: SCD (8) Goals of care, counseling/discussion Current Visit: Yes Status: Acute Assessment and plan: Palliative care consultation appreciated (9) Impaired glucose tolerance Current Visit: Yes Status: Chronic Assessment and plan: noted to have HbA1C:6.2 hyperglycemia secondary to steroid therapy will monitor FS ss insulin as needed - Subjective Interval history: Patient seen and examined at bedside. Resting in chair and reports of feeling better compared to previous day. NOted to have decrease in O2 requirement. underwent bipap qualification overnight and qualified for home bipap therapy. No overnight issues reported. - Constitutional Vitals: Temp Pulse Resp BP Pulse Ox 97.8 F 72 16 88/66 93 03/27/17 08:00 03/27/17 08:00 03/27/17 08:00 03/27/17 08:00 03/27/17 08:00 General appearance: Present: A&O X 3, morbidly obese, pleasant, no acute distress, answers questions appropriately - Head Head exam: Present: atraumatic, normocephalic - Eye Eye exam: Present: conjuntiva pink, sclera anicteric - Respiratory Respiratory exam: Present: decreased breath sounds (equal air entry bilaterally ). Absent: respiratory distress, wheezes - Cardiovascular Cardiovascular exam: Present: irregular rhythm, +S1, +S2 - GI/Abdominal GI/Abdominal exam: Present: distended (obese), normal bowel sounds, soft, no peritoneal signs. Absent: tenderness - Extremities Exam Extremities exam: Present: pedal edema, warm, radial pulses palpable and symetrical. Absent: calf tenderness - Neurological Exam Neurological exam: Present: alert, oriented X3 - Psychiatric Psychiatric exam: Present: normal affect, normal mood Internal Medicine: Result - Labs CBC & Chem 7: 03/27/17 04:00 03/27/17 04:00 Labs: Short CBC 03/27/17 Range/Units 04:00 WBC 14.3 H (4.3-11.1) K/mcL Hgb 11.8 L (12.9-16.9) g/dL Hct 37.0 L (37.5-50.1) % Plt Count 285 (140-400) K/mcL Neutrophils # 13.4 H (1.6-8.9) K/mcL BMP 03/27/17 04:00 Sodium 133 L Potassium 3.5 Chloride 80 L Carbon Dioxide 46 H* BUN 50 H Creatinine 0.93 Glucose 175 H Calcium 8.9 - ABG Interpretation ABG results: ABG ABG pH 7.50 pH Units (7.32-7.45) H 03/25/17 11:03 ABG pCO2 76 mmHg (35-45) H* 03/25/17 11:03 ABG pO2 78 mmHg (85-104) L 03/25/17 11:03 ABG O2 Saturation 96 % (95-98) 03/25/17 11:03 PT/INR, D-dimer PT 13.6 Seconds (9.4-12.1) H 03/27/17 04:00 - Impressions Impressions Chest X-Ray 03/27/17 07:30 IMPRESSION: Interval placement of right-sided chest tube with decrease in right basilar opacity and no significant right pneumothorax. Interval decrease in left pleural effusion. New small apical left pneumothorax. D/ / Debi Dickson MD / Debi Dickson MD Interpreting Provider: Debi Dickson MD Consult Discharge Plan - Plan Referrals: Tara Colmenares [Primary Care Provider] -
[2017-03-27] MEDS: Budesonide/Formoterol 160/4.5 MDI IH SCH ×2 (10:51→22:40)
[2017-03-27] MEDS: predniSONE 20 MG TABLET PO SCH (11:47)
[2017-03-27] MEDS ORDERED: *HR* LORazepam 0.5 MG TABLET PO ONE (23:08)
[2017-03-28] MEDS: Ipratropium/Albuterol Neb 3 ML IH SCH (03:48)
[2017-03-28 05:19] LABS: INR 1.1; Prothrombin Time 11.7 Seconds (9.4-12.1)
[2017-03-28] MEDS: *HR* Heparin 5,000 UNIT/ML VIAL SQ SCH ×2 (06:56→16:39)
[2017-03-28] MEDS: Furosemide 40 MG/4 ML VIAL IVP SCH ×3 (06:57→21:24)
--- NOTE | 2017-03-28 07:56 | Pulmonology Progress Note ---
Date of Encounter: 03/28/17 Time of Encounter: 07:54 Assessment and Plan (1) Acute on chronic respiratory failure with hypoxemia Current Visit: Yes Status: Acute Acute on chronic respiratory failure with hypoxia hypercapnia secondary to obesity hypoventilation syndrome and untreated sleep apnea. Patient also has evidence of pulmonary hypertension and cor pulmonale. Overall, poor prognosis over the next 12 months. Continue medical management to include noninvasive ventilatory support diuretic therapy. Given worsening right pneumothorax, patient underwent right chest tube placement by IR 03-25-17. No resolution of pneumothorax, minimal drainage from the right chest tube and this morning. The chest tube was clamped, follow-up x- ray will be obtained in several hours and if the lung remains reexpanded and the chest tube will be removed. I have discontinued IV steroids placed the patient on by mouth and would anticipate a rapid taper off since I do not believe the patient has significant COPD as eytiology of current respiratory compromise (continue BD Rx, former smoker). The patient is to continue BiPAP at night and during the daytime with any naps. I specifically put in a communication order to this effect since apparently the medical staff has not been providing BiPAP during this patient's daytime naps. My discussion with Dr. Barth, the patient is undergoing evaluation to qualify for BiPAP outside of the hospital setting. [facility] [place] [phone] Code(s): J96.21 - Acute and chronic respiratory failure with hypoxia SNOMED Code(s): 70286053290935790 Subjective Principal diagnosis: Acute on chronic respiratory failure with hypoxemia hypercapnia Interval history: No new events reported overnight per discussion with nursing staff. The patient 's description, had been utilizing BiPAP throughout most of the night times except for the past 2 nights since she is undergoing evaluation to qualify for BiPAP. This morning, he awake alert and appropriately interactive. He admits to a significant reduction of breathlessness but continues to note significant lower extremity edema. Aside from dyspnea, fatigue, non-refreshing sleep and leg edema, the patient denies any other specific complaints at this time per comprehensive review of systems. I note substantial diuresis, overall improvement of his clinical status. The right smallbore chest tube is draining only minimal fluid, there is no air leak. Objective PUL Vital signs: Last Vital Signs Temp 97.9 F 03/28/17 07:01 Pulse 80 03/28/17 07:01 Resp 17 03/28/17 07:01 BP 113/58 03/28/17 07:01 Pulse Ox 92 03/28/17 07:01 General appearance: no acute distress, other (Morbidly obese) Eyes: nonicteric ENT: oropharynx moist Mallampati (class): 3 Auscultation: right: other (Smallbore chest tube no air leak), bilateral: diminished breath sounds Cardiovascular: regular rate and rhythm Gastrointestinal: normoactive bowel sounds, non-distended, other (Central obesity, pannus) Extremities: edema (Note improving lower extremity edema) Musculoskeletal: no deformities Gait: normal gait normal mental status, non-focal exam mood appropriate Results - Laboratory Findings CBC and BMP: 03/27/17 04:00 03/27/17 04:00 ABG ABG pH 7.50 pH Units (7.32-7.45) H 03/25/17 11:03 ABG pCO2 76 mmHg (35-45) H* 03/25/17 11:03 ABG pO2 78 mmHg (85-104) L 03/25/17 11:03 ABG O2 Saturation 96 % (95-98) 03/25/17 11:03 PT/INR, D-dimer PT 11.7 Seconds (9.4-12.1) 03/28/17 04:45 Abnormal lab findings: Abnormal lab results WBC 14.3 K/mcL (4.3-11.1) H 03/27/17 04:00 Hgb 11.8 g/dL (12.9-16.9) L 03/27/17 04:00 Hct 37.0 % (37.5-50.1) L 03/27/17 04:00 RDW 16.3 % (11.5-14.5) H 03/27/17 04:00 Neutrophils # 13.4 K/mcL (1.6-8.9) H 03/27/17 04:00 Lymphocytes # 0.5 K/mcL (0.6-4.6) L 03/27/17 04:00 Large Platelets Present (Not Present) A 03/22/17 18:35 Hypochromasia Present (Not Present) A 03/22/17 18:35 Anisocytosis 1+ (Not Present) A 03/22/17 18:35 Macrocytosis Present (Not Present) A 03/22/17 18:35 APTT 40.2 Seconds (26.0-36.0) H 03/22/17 18:35 ABG pH 7.50 pH Units (7.32-7.45) H 03/25/17 11:03 ABG pCO2 76 mmHg (35-45) H* 03/25/17 11:03 ABG pO2 78 mmHg (85-104) L 03/25/17 11:03 ABG HCO3 59.3 mEQ/L (21-27) H 03/25/17 11:03 ABG Total CO2 > 60.0 mEq/L (20-26) H 03/25/17 11:03 ABG Base Excess 29.4 mEq/L (-2.0 to 3.0) H 03/25/17 11:03 Sodium 133 mEq/L (136-145) L 03/27/17 04:00 Chloride 80 mEq/L (98-109) L 03/27/17 04:00 Carbon Dioxide 46 mEq/L (19-29) H* 03/27/17 04:00 BUN 50 mg/dL (8-26) H 03/27/17 04:00 BUN/Creatinine Ratio 54 (6-26) H 03/27/17 04:00 Glucose 175 mg/dL (70-99) H 03/27/17 04:00 POC Glucose 269 (58-89) H 03/27/17 19:57 Hemoglobin A1c 6.2 % (-5.6) H 03/23/17 06:18 B-Natriuretic Peptide 611 pg/mL (0-100) H 03/22/17 18:35 Pleural Appearance Cloudy (Clear) A 03/25/17 12:30 Pleural RBC 0.142 M/mcL (0.000-0.002) H 03/25/17 12:30 - Microbiology Findings Microbiology Findings: Microbiology, Last 48 Hours 03/25/17 12:30 Body Fluid Culture - Preliminary Pleural Fluid - Clinical Findings Intake & Output: Intake & Output 03/27/17 03/27/17 03/28/17 15:59 23:59 07:59 Intake Total 480 / 480 480 / 480 400 / 400 Output Total 1850 / 1850 400 / 400 1200 / 1200 Balance -1370 / -1370 80 / 80 -800 / -800 Weight 130.8 kg Consult Discharge Plan - Plan Referrals: Tara Colmenares [Primary Care Provider] -
[2017-03-28 08:32] LABS: Basophils % 0.1 %; Eosinophils # 0.1 K/mcL (0.0-0.6); Eosinophils % 0.6 %; Hematocrit 38.2 % (37.5-50.1); Hemoglobin 12.1 g/dL (12.9-16.9); Immature Granulocytes % 0.4 % (0-4); Lymphocytes # 0.8 K/mcL (0.6-4.6); Lymphocytes % 5.8 %; Mean Corpuscular HGB Conc 31.7 g/dL (31.6-35.5); Mean Corpuscular Hemoglobin 28.1 pg (28.0-33.3); Mean Corpuscular Volume 88.8 fL (83.0-100.0); Mean Platelet Volume 10.7 fL (9.4-12.4); Monocytes # 0.8 K/mcL (0.0-1.3); Monocytes % 5.7 %; Neutrophils # 12.6 K/mcL (1.6-8.9); Platelet Count 283 K/mcL (140-400); Red Cell Distribution Width 16.6 % (11.5-14.5); Segmented Neutrophils % 87.4 %
[2017-03-28 08:46] LABS: BUN/Creatinine Ratio 52 (6-26); Blood Urea Nitrogen 40 mg/dL (8-26); Calcium 8.6 mg/dL (8.6-10.8); Chloride 83 mEq/L (98-109); Glucose 105 mg/dL (70-99); Osmolality,Calculated 290 (280-300); Phosphorous 2.6 mg/dL (2.3-4.7); Potassium 3.1 mEq/L (3.5-4.5); Sodium 135 mEq/L (136-145); eGFR For African Americans > 60 (> 60); eGFR For Non-African Americans > 60 (> 60)
[2017-03-28] MEDS: Insulin LISPRO 300 UNITS/3 ML VIAL SQ SCH ×4 (08:54→21:25)
--- NOTE | 2017-03-28 08:56 | Palliative Progress Note ---
Date of Encounter: 03/28/17 Time of Encounter: 07:20 - Assessment and plan (1) Dyspnea Current Visit: Yes Status: Acute Assessment and plan: The patient states it is much better at this time and as per pulmonary and hospitalist team. The patient is to use BiPAP during naps patient has now been qualified for home BiPAP. I anticipate that he will be going home shortly after his chest tube is discontinued. Plan is per the hospitalist team. Qualifiers: Dyspnea type: unspecified Qualified Code(s): R06.00 - Dyspnea, unspecified (2) Goals of care, counseling/discussion Current Visit: Yes Status: Acute Assessment and plan: The patient is a full code, however he knows he does not wish to be placed on a ventilator long-term. He would not want a trach and opaque. I have encouraged him to discuss this with his family and they know what his wishes are. I have informed him as has pulmonary that if he goes on a ventilator is very unlikely he is going to come off. Regarding goals of care he is not completely opposed to pulmonary rehabilitation , however he does not feel that [facility] did a good job for him he does not really wish to go back. There is also a halfway in [facility], he made it clear that he wants no part of them. Patient would primarily like to go home. This morning there is no significant change to the above, however the patient would really like to go home and does not really want to do rehabilitation at a halfway. I do believe however if this is recommended by the hospitalist and pulmonary teams he will reluctantly agree to it. (3) Constipation by delayed colonic transit Current Visit: Yes Status: Acute Assessment and plan: Bowels are moving, continue to watch no changes today. (4) CHF (congestive heart failure) Current Visit: Yes Status: Acute Assessment and plan: Patient feels much better today. Plan per hospitalist and pulmonary. She has requested nutrition consult regarding dietary counseling, I have put this in. Wishes to do everything he can do stay out of the hospital. Qualifiers: Congestive heart failure type: diastolic Congestive heart failure chronicity: acute on chronic Qualified Code(s): I50.33 - Acute on chronic diastolic (congestive) heart failure (5) COPD (chronic obstructive pulmonary disease) Current Visit: Yes Status: Chronic Assessment and plan: Patient feels slightly better today, plan per pulmonary hospitalist team. Qualifiers: COPD type: COPD with acute exacerbation Qualified Code(s): J44.1 - Chronic obstructive pulmonary disease with (acute) exacerbation - Time Spent With Patient Total time spent is greater than 50% in coordination of care (as documented) at patient's floor/unit and/or counseling patient: - Subjective Interval history: The patient states his breathing is better today. He does continue to have difficulty at night because of tests being done, open to go home soon and wishes to go home and not do rehabilitation. He did request a nutrition consult so that he may stay out of the hospital. - Constitutional Vitals: Abnormal lab results WBC 14.4 K/mcL (4.3-11.1) H 03/28/17 07:40 Hgb 12.1 g/dL (12.9-16.9) L 03/28/17 07:40 RDW 16.6 % (11.5-14.5) H 03/28/17 07:40 Neutrophils # 12.6 K/mcL (1.6-8.9) H 03/28/17 07:40 Large Platelets Present (Not Present) A 03/22/17 18:35 Hypochromasia Present (Not Present) A 03/22/17 18:35 Anisocytosis 1+ (Not Present) A 03/22/17 18:35 Macrocytosis Present (Not Present) A 03/22/17 18:35 APTT 40.2 Seconds (26.0-36.0) H 03/22/17 18:35 ABG pH 7.50 pH Units (7.32-7.45) H 03/25/17 11:03 ABG pCO2 76 mmHg (35-45) H* 03/25/17 11:03 ABG pO2 78 mmHg (85-104) L 03/25/17 11:03 ABG HCO3 59.3 mEQ/L (21-27) H 03/25/17 11:03 ABG Total CO2 > 60.0 mEq/L (20-26) H 03/25/17 11:03 ABG Base Excess 29.4 mEq/L (-2.0 to 3.0) H 03/25/17 11:03 Sodium 133 mEq/L (136-145) L 03/27/17 04:00 Chloride 80 mEq/L (98-109) L 03/27/17 04:00 Carbon Dioxide 46 mEq/L (19-29) H* 03/27/17 04:00 BUN 50 mg/dL (8-26) H 03/27/17 04:00 BUN/Creatinine Ratio 54 (6-26) H 03/27/17 04:00 Glucose 175 mg/dL (70-99) H 03/27/17 04:00 POC Glucose 269 (58-89) H 03/27/17 19:57 Hemoglobin A1c 6.2 % (-5.6) H 03/23/17 06:18 B-Natriuretic Peptide 611 pg/mL (0-100) H 03/22/17 18:35 Pleural Appearance Cloudy (Clear) A 03/25/17 12:30 Pleural RBC 0.142 M/mcL (0.000-0.002) H 03/25/17 12:30 General appearance: Present: no acute distress - Head Head exam: Present: atraumatic, normal inspection - Eye Eye exam: Present: PERRL - ENT ENT exam: Present: mucous membranes moist - Respiratory Respiratory exam: Present: decreased breath sounds (These are markedly improved over prior to the thoracentesis and chest tube placement. The patient does have a chest tube still on the right side.) - Cardiovascular Cardiovascular exam: Present: RRR - GI/Abdominal GI/Abdominal exam: Present: normal bowel sounds, soft. Absent: tenderness - Extremities Exam Extremities exam: Present: pedal edema (Improving). Absent: normal inspection, tenderness - Neurological Exam Neurological exam: Present: alert, oriented X3 - Psychiatric Psychiatric exam: Absent: agitated, anxious - Skin Skin exam: Present: dry, warm Palliative Quality Palliative Quality: Screen for Code Status: Yes, Screen for Goals of Care: Yes, Screen for Pain: Yes, If Pain Regimen Started, Initiate Bowel Regimen: Yes, Screen for Nausea/Vomitting: Yes - Labs CBC & Chem 7: 03/28/17 07:40 03/27/17 04:00 Labs: Laboratory Results - last 24 hr 03/27/17 03/27/17 03/27/17 08:07 11:28 16:37 WBC RBC Hgb Hct MCV MCH MCHC RDW Plt Count MPV Immature Gran % Seg Neutrophils % Lymphocytes % Monocytes % Eosinophils % Basophils % Neutrophils # Lymphocytes # Monocytes # Eosinophils # Basophils # PT INR POC Glucose 157 H 171 H 201 H 03/27/17 03/28/17 03/28/17 19:57 04:45 07:40 WBC 14.4 H RBC 4.30 Hgb 12.1 L Hct 38.2 MCV 88.8 MCH 28.1 MCHC 31.7 RDW 16.6 H Plt Count 283 MPV 10.7 Immature Gran % 0.4 Seg Neutrophils % 87.4 Lymphocytes % 5.8 Monocytes % 5.7 Eosinophils % 0.6 Basophils % 0.1 Neutrophils # 12.6 H Lymphocytes # 0.8 Monocytes # 0.8 Eosinophils # 0.1 Basophils # 0.0 PT 11.7 INR 1.1 POC Glucose 269 H - ABG Interpretation ABG results: ABG ABG pH 7.50 pH Units (7.32-7.45) H 03/25/17 11:03 ABG pCO2 76 mmHg (35-45) H* 03/25/17 11:03 ABG pO2 78 mmHg (85-104) L 03/25/17 11:03 ABG O2 Saturation 96 % (95-98) 03/25/17 11:03 PT/INR, D-dimer PT 11.7 Seconds (9.4-12.1) 03/28/17 04:45 Consult Discharge Plan - Plan Referrals: Tara Colmenares [Primary Care Provider] -
[2017-03-28 08:58] LABS: Carbon Dioxide 48 mEq/L (19-29)
[2017-03-28] MEDS: metOLazone 2.5 MG TABLET PO SCH (09:04)
[2017-03-28] MEDS: Aspirin Enteric Coated 81 MG Tablet PO SCH (09:04)
[2017-03-28] MEDS: predniSONE 20 MG TABLET PO SCH (09:04)
[2017-03-28] MEDS: Sennosides/Docusate Sodium TABLET PO SCH (09:05)
[2017-03-28] MEDS: Budesonide/Formoterol 160/4.5 MDI IH SCH ×2 (09:29→19:48)
[2017-03-28] MEDS ORDERED: Furosemide 40 MG/4 ML VIAL IVP SCH (11:16)
--- NOTE | 2017-03-28 11:16 | Internal Med Progress Note ---
Date of Encounter: 03/28/17 Time of Encounter: 11:16 - Assessment and plan (1) Respiratory failure Current Visit: Yes Status: Acute Assessment and plan: Acute on chronic respiratory failure with hypercapnia Oxygen supplementation. BiPAP therapy trhoughout the day during naps and at bedtime. Close monitoring. Case discussed with pulmonology. Appreciate input and recommendations. s/p right chest tube placement and left sided thoracentesis yesterday (03/25/17). Pleural fluid analysis consistent with transudative effusion Chest tube to be removed as per pulmonology evaluation will closely monitor respiratory status patient at high risk of mechanical intubation CXR reviewed Patient in agreement for Home health upon discharge, refusing ECF Qualifiers: Chronicity: acute Respiratory failure complication: hypoxia and hypercapnia Qualified Code(s): J96.01 - Acute respiratory failure with hypoxia ; J96.02 - Acute respiratory failure with hypercapnia (2) Hydropneumothorax Current Visit: Yes Status: Acute Assessment and plan: right hydropneumothorax resolved after right chest tube placement Poor prognosis stated given current pulmonary function Palliative care on board to discuss goals of care patient remains full code and awaiting family input in regards to group home care goals Resume coumadin today Continue BiPAP therapy when patient is asleep. (3) Hemothorax on left Current Visit: Yes Status: Acute Assessment and plan: as listed above (4) CHF (congestive heart failure) Current Visit: Yes Status: Acute Assessment and plan: Echocardiogram reveals preserved ejection fraction. Indeterminate diastolic function due to atrial flutter ablation. Right ventricular enlargement and systolic dysfunction. Likely related to cor pulmonale due to his severe lung problems. Continue diuresis. Unable to tolerate lasix due to BP readings. Changed to Lasix TID. Will closely monitor BP and administer Lasix if SBP>100 NOted to be hypotensive this morning but asymptomatic, will closely monitor, held morning Lasix dose due to BP readings. Strict input and output monitoring. Daily weights. Fluid restricted diet. Qualifiers: Congestive heart failure type: diastolic Congestive heart failure chronicity: acute on chronic Qualified Code(s): I50.33 - Acute on chronic diastolic (congestive) heart failure (5) Chronic a-fib Current Visit: Yes Status: Chronic Assessment and plan: Rate controlled currently. Continue rate control medications. Hematuria resolved Resume Coumadin pharmacist to dose coumadin and monitor INR (6) COPD (chronic obstructive pulmonary disease) Current Visit: Yes Status: Chronic Assessment and plan: Discontinued steroids Breathing treatments. Complicated by hydropneumothorax on the right side and hemothorax on left Qualifiers: COPD type: COPD with acute exacerbation Qualified Code(s): J44.1 - Chronic obstructive pulmonary disease with (acute) exacerbation (7) DVT prophylaxis Current Visit: Yes Status: Acute Assessment and plan: SCD (8) Goals of care, counseling/discussion Current Visit: Yes Status: Acute Assessment and plan: Palliative care consultation appreciated (9) Impaired glucose tolerance Current Visit: Yes Status: Chronic Assessment and plan: noted to have HbA1C:6.2 will monitor FS ss insulin as needed - Subjective Interval history: Patient seen and examined at bedside. Resting in chair and reports of feeling well. No overnight issues reported. - Constitutional Vitals: Temp Pulse Resp BP Pulse Ox 97.9 F 80 16 113/58 96 03/28/17 07:01 03/28/17 07:01 03/28/17 09:25 03/28/17 07:01 03/28/17 09:25 General appearance: Present: A&O X 3, morbidly obese, pleasant, no acute distress, answers questions appropriately - Head Head exam: Present: atraumatic, normocephalic - Eye Eye exam: Present: conjuntiva pink, sclera anicteric - Respiratory Respiratory exam: Present: decreased breath sounds, wheezes (mild diffuse wheezing ). Absent: respiratory distress - Cardiovascular Cardiovascular exam: Present: RRR, +S1, +S2. Absent: diastolic murmur, gallop, rubs, systolic murmur - GI/Abdominal GI/Abdominal exam: Present: distended (obese), normal bowel sounds, soft, no peritoneal signs. Absent: tenderness - Extremities Exam Extremities exam: Present: pedal edema, warm, radial pulses palpable and symetrical. Absent: calf tenderness - Neurological Exam Neurological exam: Present: alert, oriented X3 - Psychiatric Psychiatric exam: Present: normal affect, normal mood Internal Medicine: Result - Labs CBC & Chem 7: 03/28/17 07:40 03/28/17 07:40 Labs: Short CBC 03/28/17 Range/Units 07:40 WBC 14.4 H (4.3-11.1) K/mcL Hgb 12.1 L (12.9-16.9) g/dL Hct 38.2 (37.5-50.1) % Plt Count 283 (140-400) K/mcL Neutrophils # 12.6 H (1.6-8.9) K/mcL BMP 03/28/17 07:40 Sodium 135 L Potassium 3.1 L Chloride 83 L Carbon Dioxide 48 H* BUN 40 H D Creatinine 0.77 Glucose 105 H Calcium 8.6 - ABG Interpretation ABG results: ABG ABG pH 7.50 pH Units (7.32-7.45) H 03/25/17 11:03 ABG pCO2 76 mmHg (35-45) H* 03/25/17 11:03 ABG pO2 78 mmHg (85-104) L 03/25/17 11:03 ABG O2 Saturation 96 % (95-98) 03/25/17 11:03 PT/INR, D-dimer PT 11.7 Seconds (9.4-12.1) 03/28/17 04:45 Consult Discharge Plan - Plan Referrals: Tara Colmenares [Primary Care Provider] -
[2017-03-28] MEDS: Albuterol 2.5 MG/3 ML NEBULIZER IH PRN (11:43)
--- NOTE | 2017-03-28 14:23 | Event Note ---
Date of Encounter: 03/28/17 Time of Encounter: 14:21 Follow-up chest film reveals absence of right pneumothorax. There is a left basilar pneumothorax which given its configuration and from review of the older CT imaging is likely front desk representative of a trapped lung. I reviewed the situation with radiology and have opted not have IR place a left chest tube since it is unlikely that that lung will re-expand. The right chest tube was removed without difficulty. If the patient's clinical status continues to improve and he is set up for home services including BiPAP as well as an outpatient follow-up sleep evaluation then, I think he could be released from the acute hospital through the weekend. Please call if you have any questions [facility] [phone]
[2017-03-28] MEDS ORDERED: *HR* Warfarin 10 MG TABLET PO SCH (18:00)
[2017-03-28] MEDS ORDERED: Sennosides/Docusate Sodium TABLET PO SCH (21:00)
[2017-03-29 05:10] LABS: Basophils % 0.1 %; Eosinophils # 0.1 K/mcL (0.0-0.6); Eosinophils % 0.6 %; Hematocrit 40.3 % (37.5-50.1); Hemoglobin 12.5 g/dL (12.9-16.9); Immature Granulocytes % 0.5 % (0-4); Lymphocytes % 6.7 %; Mean Corpuscular Hemoglobin 27.8 pg (28.0-33.3); Mean Corpuscular Volume 89.6 fL (83.0-100.0); Mean Platelet Volume 10.6 fL (9.4-12.4); Monocytes # 0.8 K/mcL (0.0-1.3); Monocytes % 5.1 %; Neutrophils # 13.2 K/mcL (1.6-8.9); Platelet Count 293 K/mcL (140-400); Red Cell Distribution Width 16.6 % (11.5-14.5)
[2017-03-29 05:14] LABS: Prothrombin Time 11.1 Seconds (9.4-12.1)
[2017-03-29 05:25] LABS: BUN/Creatinine Ratio 43 (6-26); Blood Urea Nitrogen 36 mg/dL (8-26); Calcium 8.8 mg/dL (8.6-10.8); Chloride 85 mEq/L (98-109); Glucose 118 mg/dL (70-99); Magnesium 1.9 mg/dL (1.6-2.6); Osmolality,Calculated 291 (280-300); Phosphorous 2.7 mg/dL (2.3-4.7); Potassium 4.1 mEq/L (3.5-4.5); Sodium 136 mEq/L (136-145); eGFR For African Americans > 60 (> 60); eGFR For Non-African Americans > 60 (> 60)
[2017-03-29 05:27] LABS: Carbon Dioxide 47 mEq/L (19-29)
[2017-03-29] MEDS: Furosemide 40 MG/4 ML VIAL IVP SCH (06:01)
[2017-03-29] MEDS: *HR* Heparin 5,000 UNIT/ML VIAL SQ SCH (06:02)
--- NOTE | 2017-03-29 08:07 | Pulmonology Progress Note ---
Date of Encounter: 03/29/17 Time of Encounter: 08:03 Assessment and Plan (1) Acute on chronic respiratory failure with hypoxemia Current Visit: Yes Status: Acute Acute on chronic respiratory failure with hypoxia hypercapnia secondary to obesity hypoventilation syndrome and untreated sleep apnea. Patient also has evidence of pulmonary hypertension and cor pulmonale. Continue medical management to include noninvasive ventilatory support, diuretic therapy. Given worsening right pneumothorax, patient underwent right chest tube placement by IR 03-25-17. Note resolution of pneumothorax, minimal drainage from the right chest tube and hence the device was removed 03-28-17. I anticipate a rapid taper off steroids since I do not believe the patient has significant COPD exacerbation as etiology of current respiratory compromise ( continue BD Rx, former smoker). The patient is to continue BiPAP at night and during the daytime with any naps. I specifically put in a communication order to this effect since apparently the medical staff has not been providing BiPAP during this patient's daytime naps. The patient should undergo a follow-up evaluation for BiPAP titration but should qualify for use of BiPAP upon his discharge from the hospital. Please call if you have any questions E Chuy [phone] Code(s): J96.21 - Acute and chronic respiratory failure with hypoxia SNOMED Code(s): 17564007938973865 Subjective Principal diagnosis: Acute on chronic respiratory failure with hypoxemia hypercapnia Interval history: No new events reported overnight per discussion with nursing staff. The patient apparently utilized BiPAP for most of the night last evening.. This morning, he remains on BiPAP although denied any specific complaints. Yesterday during the morning and afternoon, the patient felt substantially better than at the time of his admission and overall noted significant improvement of breathlessness activity tolerance in comparison to the last several months. Aside from dyspnea, fatigue, non-refreshing sleep and leg edema, the patient denies any other specific complaints at this time per comprehensive review of systems. I note substantial diuresis, overall improvement of his clinical status. The right smallbore chest tube was removed yesterday. Follow-up imaging of the chest was notable for a left basilar and apical pneumothorax which given its configuration is likely paper sales representative of a trapped lung hence an additional chest tube (in light of the fact that the patient's overall clinical respiratory status is substantially improved) was not placed (placement of chest tube likely will not aid in resolution of left pneumothorax). Objective PUL Vital signs: Last Vital Signs Temp 98.5 F 03/29/17 05:24 Pulse 73 03/29/17 05:24 Resp 19 03/29/17 05:24 BP 107/67 03/29/17 05:24 Pulse Ox 97 03/29/17 05:24 General appearance: no acute distress, other (Obese male awake and alert no distress) Eyes: nonicteric ENT: oropharynx moist Auscultation: bilateral: diminished breath sounds Percussion: bilateral: dull Cardiovascular: regular rate and rhythm Gastrointestinal: normoactive bowel sounds, non-distended, other (Central obesity, pannus) Extremities: edema normal mental status, non-focal exam Results - Laboratory Findings CBC and BMP: 03/29/17 04:34 03/29/17 04:34 ABG ABG pH 7.50 pH Units (7.32-7.45) H 03/25/17 11:03 ABG pCO2 76 mmHg (35-45) H* 03/25/17 11:03 ABG pO2 78 mmHg (85-104) L 03/25/17 11:03 ABG O2 Saturation 96 % (95-98) 03/25/17 11:03 PT/INR, D-dimer PT 11.1 Seconds (9.4-12.1) 03/29/17 04:34 Abnormal lab findings: Abnormal lab results WBC 15.1 K/mcL (4.3-11.1) H 03/29/17 04:34 Hgb 12.5 g/dL (12.9-16.9) L 03/29/17 04:34 MCH 27.8 pg (28.0-33.3) L 03/29/17 04:34 MCHC 31.0 g/dL (31.6-35.5) L 03/29/17 04:34 RDW 16.6 % (11.5-14.5) H 03/29/17 04:34 Neutrophils # 13.2 K/mcL (1.6-8.9) H 03/29/17 04:34 Large Platelets Present (Not Present) A 03/22/17 18:35 Hypochromasia Present (Not Present) A 03/22/17 18:35 Anisocytosis 1+ (Not Present) A 03/22/17 18:35 Macrocytosis Present (Not Present) A 03/22/17 18:35 APTT 40.2 Seconds (26.0-36.0) H 03/22/17 18:35 ABG pH 7.50 pH Units (7.32-7.45) H 03/25/17 11:03 ABG pCO2 76 mmHg (35-45) H* 03/25/17 11:03 ABG pO2 78 mmHg (85-104) L 03/25/17 11:03 ABG HCO3 59.3 mEQ/L (21-27) H 03/25/17 11:03 ABG Total CO2 > 60.0 mEq/L (20-26) H 03/25/17 11:03 ABG Base Excess 29.4 mEq/L (-2.0 to 3.0) H 03/25/17 11:03 Chloride 85 mEq/L (98-109) L 03/29/17 04:34 Carbon Dioxide 47 mEq/L (19-29) H* 03/29/17 04:34 BUN 36 mg/dL (8-26) H 03/29/17 04:34 BUN/Creatinine Ratio 43 (6-26) H 03/29/17 04:34 Glucose 118 mg/dL (70-99) H 03/29/17 04:34 POC Glucose 203 (58-89) H 03/28/17 16:21 Hemoglobin A1c 6.2 % (-5.6) H 03/23/17 06:18 B-Natriuretic Peptide 611 pg/mL (0-100) H 03/22/17 18:35 Pleural Appearance Cloudy (Clear) A 03/25/17 12:30 Pleural RBC 0.142 M/mcL (0.000-0.002) H 03/25/17 12:30 - Microbiology Findings Microbiology Findings: Microbiology, Last 48 Hours 03/25/17 12:30 Body Fluid Culture - Final Pleural Fluid - Clinical Findings Intake & Output: Intake & Output 03/28/17 03/29/17 03/29/17 23:59 07:59 15:59 Intake Total 100 / 100 Output Total 1500 / 1500 1600 / 1600 Balance -1400 / -1400 -1600 / -1600 Weight 131.1 kg Consult Discharge Plan - Plan Referrals: Tara Colmenares [Primary Care Provider] -
[2017-03-29] MEDS: Budesonide/Formoterol 160/4.5 MDI IH SCH (08:18)
[2017-03-29] MEDS: metOLazone 2.5 MG TABLET PO SCH (09:37)
[2017-03-29] MEDS: Aspirin Enteric Coated 81 MG Tablet PO SCH (09:37)
[2017-03-29] MEDS: predniSONE 20 MG TABLET PO SCH (09:38)
[2017-03-29] MEDS: Insulin LISPRO 300 UNITS/3 ML VIAL SQ SCH ×2 (09:43→12:23)
--- NOTE | 2017-03-29 10:57 | Discharge Summary ---
Date of Encounter: 03/29/17 Time of Encounter: 10:43 - Discharge Diagnosis (1) Respiratory failure Priority: Primary Status: Resolved Qualifiers: Chronicity: acute Respiratory failure complication: hypoxia and hypercapnia Qualified Code(s): J96.01 - Acute respiratory failure with hypoxia ; J96.02 - Acute respiratory failure with hypercapnia (2) Hydropneumothorax Priority: Primary Status: Resolved (3) Hemothorax on left Priority: Primary Status: Resolved (4) CHF (congestive heart failure) Priority: Primary Status: Acute Qualifiers: Congestive heart failure type: diastolic Congestive heart failure chronicity: acute on chronic Qualified Code(s): I50.33 - Acute on chronic diastolic (congestive) heart failure (5) Chronic a-fib Priority: Secondary Status: Chronic (6) COPD (chronic obstructive pulmonary disease) Priority: Secondary Status: Chronic Qualifiers: COPD type: COPD with acute exacerbation Qualified Code(s): J44.1 - Chronic obstructive pulmonary disease with (acute) exacerbation (7) DVT prophylaxis Priority: Secondary Status: Acute (8) Goals of care, counseling/discussion Priority: Secondary Status: Acute (9) Impaired glucose tolerance Priority: Secondary Status: Chronic - Discharge Medications Prescriptions: predniSONE [PredniSONE] 40 mg PO DAILY #5 tab Home Medications: Acetaminophen [Tylenol] 650 mg PO Q6HR PRN 03/22/17 [History] Albuterol Sulfate 2.5 mg IH Q4HR PRN 03/22/17 [History] Albuterol Sulfate [Proventil Hfa] 2 puff IH Q4HR 03/22/17 [History] Allopurinol [Zyloprim] 300 mg PO DAILY 03/22/17 [History] Aspirin [Lo-Dose Aspirin EC] 81 mg PO DAILY 03/22/17 [History] Docusate Sodium [Move It Along] 100 mg PO BID 03/22/17 [History] Furosemide [Lasix] 80 mg PO BID 03/22/17 [History] Metoprolol Tartrate [Lopressor] 25 mg PO BID 03/22/17 [History] Psyllium Seed [Hydrocil Instant] 2.6 gm PO BID 03/22/17 [History] Simvastatin [Zocor] 20 mg PO HS 03/22/17 [History] Warfarin [Coumadin] 10 mg PO 1700 03/22/17 [History] metOLazone [Zaroxolyn] 2.5 mg PO DAILY 03/22/17 [History] predniSONE [PredniSONE] 40 mg PO DAILY #5 tab 03/29/17 [Rx] Allergies/Adverse Reactions: Allergies lisinopril Adverse Reaction (Verified 03/22/17 18:18) See Comments "it makes me slobber" Date of admission: 03/22/17 23:00 Primary care physician: Tara Colmenares Consults: 03/23/17 09:07 Consult to Pulmonology [CONS] Routine Consulting Provider: Pulm Crit Care & Sleep Valery Reason for Consult: Right hydropneumothorax moderate with partial collapse of right lung Call Completed: Yes 03/23/17 13:05 Consult to Palliative Care [CONS] Routine Comment: Consulting Provider: Palliative Care Valery Reason for Consult: Goals of care; Hospice appropriate per pulm. Call Completed: No 03/25/17 09:13 Consult to Cardiothoracic Surgery [CONS] Stat Consulting Provider: Cardiothoracic Surgery Valery Reason for Consult: hydropneumothorax Call Completed: Yes 03/25/17 10:06 Consult to Interventional Radiology [CONS] Routine Consulting Provider: Radiology Interventional Cols Reason for Consult: hydropneumothorax Call Completed: Yes 03/28/17 08:43 Consult to Nutrition [CONS] Stat Comment: diet recommendations for after d/c Consulting Provider: NUTRITION Reason for Dietary Consult: Diet Education 03/28/17 13:24 Consult to Interventional Radiology [CONS] Routine Consulting Provider: Radiology Interventional Cols Reason for Consult: left hydropneumothorax, needs small bore chest tube Time Notified: 13:25 Call Completed: No Discharging clinician: Yina Shannon Anticipated date of discharge: 03/29/17 - Patient Status Disposition: Home Health Service Condition: Fair Functional capacity at discharge: uses cane/walker Overall status at discharge: patient is back to baseline - Discharge Instructions Follow Up With: Tara Colmenares [Primary Care Provider] - Additional Instructions: Please follow up with your primary care physician, computer applications developer, and aids nurse within one week after your discharge from the hospital. Please continue your follow up schedule with coumadin clinic. Please continue oral prednisone as prescribed. continue your home medications as prescribed Please closely monitor your blood pressure at home. Hold Metoprolol and Lasix if your systolic blood pressure is below 100. Please keep a log of your daily blood pressure readings and take this log with you to your primary care appointment. Continue O2 support at all times. Use bipap during day time naps and at bedtime. If you have difficulty breathing, please seek medical help immediately. Maintain a fluid restriction diet. 1.5L/day Low salt diet - Diet and Activity Activity: as per physical therapy, wear oxygen at all times Diet: diabetic diet, low fat, low cholesterol, low salt diet Hospital course: Mr. Monroy is a 71 year old male with PMH of CHF, COPD on LTOT, DM, HTN, Afib on anticoagulation who was admitted for acute on chronic respiratory failure. He was noted to have right hydropneumothorax and left hemithorax secondary to CHF decompensation and concern for COPD exacerbation. He was started on aggressive IV diuresis and pulmonology was consulted. Patient continues to have worsening of her pneumothorax due to which IR was consulted. A right sided chest tube was placed and left sided thoracentesis was done by IR. Patient responded well to therapy. He was noted to have hematuria due to which his coumadin was placed on hold. Once hematuria was resolved, his coumadin was resumed. Patient was also seen by palliative care given his severe lung disease and to establish assisted goals of care. He remained adamant about being full code despite knowing that if he were to be mechanically ventilated, he may not be able to be extubated. He started working on his living will during this hospitalization. He was evaluated by physical therapy and ECF was recommended, however patient continued to refuse rehab due to which home health services were set up. He qualified for home O2 and bipap which have been set up. Patient is currently hemodynamically stable, saturating well on nasal cannula. He will be discharged to home today with follow up with PCP, pulmonology, and cardiology. Patient demonstrates understanding of his diagnosis and agrees with the discharge care and plan. - Time Spent with Patient Total time spent providing and/or coordinating discharge services: Greater than 30 minutes - Constitutional Vitals: Temp Pulse Resp BP Pulse Ox 97.5 F L 75 17 104/54 93 03/29/17 08:31 03/29/17 08:31 03/29/17 08:31 03/29/17 08:31 03/29/17 09:00 General appearance: Present: A&O X 3, morbidly obese, no acute distress, answers questions appropriately - Head Head exam: Present: atraumatic, normocephalic - Eye Eye exam: Present: conjuntiva pink, sclera anicteric - Respiratory Respiratory exam: Absent: respiratory distress, wheezes - Cardiovascular Cardiovascular exam: Present: irregular rhythm, +S1, +S2. Absent: diastolic murmur, gallop, rubs, systolic murmur - GI/Abdominal GI/Abdominal exam: Present: normal bowel sounds, soft, no peritoneal signs. Absent: distended, tenderness - Extremities Exam Extremities exam: Present: pedal edema, warm, radial pulses palpable and symetrical. Absent: calf tenderness - Neurological Exam Neurological exam: Present: alert, oriented X3 - Psychiatric Psychiatric exam: Present: normal affect, normal mood
--- NOTE | 2017-03-29 11:09 | Physician Discharge Referral ---
Home Health/Hosp Referral Info Transfer to: Home Health Provider in Charge Post Discharge: PCP - Diagnosis (1) Respiratory failure Priority: Primary Status: Resolved (2) Hydropneumothorax Priority: Primary Status: Resolved (3) Hemothorax on left Priority: Primary Status: Resolved (4) CHF (congestive heart failure) Priority: Primary Status: Acute (5) Chronic a-fib Priority: Secondary Status: Chronic (6) COPD (chronic obstructive pulmonary disease) Priority: Secondary Status: Chronic (7) DVT prophylaxis Priority: Secondary Status: Acute (8) Goals of care, counseling/discussion Priority: Secondary Status: Acute (9) Impaired glucose tolerance Priority: Secondary Status: Chronic - Respiratory Orders Oxygen / L per min (2L/min) Smoking Cessation: Smoking cessation has been advised. For more information, call the [facility] Tobacco Quit Line at 6-290-FGTM-NOW. - Services Needed Following services are medically necessary services: Nursing, Home Health Aide, Physical Therapy, Occupational Therapy - Transfer Medications Prescriptions: predniSONE [PredniSONE] 40 mg PO DAILY #5 tab Home Medications: Acetaminophen [Tylenol] 650 mg PO Q6HR PRN 03/22/17 [History] Albuterol Sulfate 2.5 mg IH Q4HR PRN 03/22/17 [History] Albuterol Sulfate [Proventil Hfa] 2 puff IH Q4HR 03/22/17 [History] Allopurinol [Zyloprim] 300 mg PO DAILY 03/22/17 [History] Aspirin [Lo-Dose Aspirin EC] 81 mg PO DAILY 03/22/17 [History] Docusate Sodium [Move It Along] 100 mg PO BID 03/22/17 [History] Furosemide [Lasix] 80 mg PO BID 03/22/17 [History] Metoprolol Tartrate [Lopressor] 25 mg PO BID 03/22/17 [History] Psyllium Seed [Hydrocil Instant] 2.6 gm PO BID 03/22/17 [History] Simvastatin [Zocor] 20 mg PO HS 03/22/17 [History] Warfarin [Coumadin] 10 mg PO 1700 03/22/17 [History] metOLazone [Zaroxolyn] 2.5 mg PO DAILY 03/22/17 [History] predniSONE [PredniSONE] 40 mg PO DAILY #5 tab 03/29/17 [Rx] Allergies/Adverse Reactions: Allergies lisinopril Adverse Reaction (Verified 03/22/17 18:18) See Comments "it makes me slobber" Certification: Further, I certify that my clinical findings support that this patient is homebound (i.e. absences from home require considerable and taxing effort and are for medical reasons or jainism services or infrequently or short duration when for other reasons) because: Homebound Reason: Patient requires assistance of a person or device to safely leave home Attestation: My signature below is to certify that this patient is under my care and that I, or nurse practitioner, or a physician's assistant manager working with me, has a face-to -face encounter with this patient.
[2017-03-29 11:40] VITALS: BP 95/68
== END 2017-03-29 14:50 | disposition home health service (06) | DRG 291 ==
LOC: EMEROO 18:00 → 2NENU 18:00 → SUATTDRO 23:00
PROVIDERS: ADMIT Pediatrics; ATTEND Internal Medicine